=== PATIENT | female | born 1975 | race Hispanic/Latino ===

== ENCOUNTER 2020-07-17 21:27 | Emergency (ER) | payer MEDICARE ==
[2020-07-17 22:02] LABS: BASOPHILS % (AUTO) 0.4 % (0.0-5.0); EOSINOPHILS % (AUTO) 0.1 % (0.0-8.0); HEMATOCRIT 38.8 % (36-48); LYMPHOCYTES % (AUTO) 27.7 % (21.0-51.0); MEAN CORPUSCULAR HEMOGLOBIN 28.3 pg (27.0-33.0); MEAN CORPUSCULAR HGB CONC 32.5 g/dL (32.0-36.0); MONOCYTES % (AUTO) 5.2 % (3.0-13.0); NEUTROPHILS % (AUTO) 66.1 % (40.0-77.0); PLATELET COUNT (AUTO) 326 K/uL (130-400); RED BLOOD CELL COUNT(AUTO) 4.46 MIL/uL (4.00-5.50); RED CELL DISTRIBUTION WIDTH 13.1 % (11.0-15.5); WHITE BLOOD COUNT (AUTO) 7.4 K/uL (4.8-10.8)
[2020-07-17 22:13] LABS: CARBON DIOXIDE 25 mmol/L (21-32); CHLORIDE 105 mmol/L (101-111); CREATININE 0.9 mg/dL (0.5-1.5); GLOMERULAR FILTR. RATE CALC 71 mL/min (>60); GLUCOSE,RANDOM 303 mg/dL (70-105); SODIUM SERUM 139 mmol/L (136-145); UREA NITROGEN, BLOOD 15 mg/dL (7-18)
[2020-07-17 22:16] LABS: INR 0.84 (0.85-1.15); PROTHROMBIN TIME 9.1 SEC (9.6-11.6)
[2020-07-17 22:18] LABS: ALANINE AMINOTRANSFERASE 33 U/L (12-78); ALBUMIN 3.4 g/dL (3.5-5.0); ASPARTATE AMINOTRANSFERASE 16 U/L (10-37); CREATINE KINASE, TOTAL 52 U/L (21-232); TOTAL PROTEIN, SERUM 7.5 g/dL (6.0-8.3)
[2020-07-17 22:21] LABS: BILIRUBIN,TOTAL < 0.1 mg/dL (0.2-1.0)
[2020-07-17 22:28] LABS: B-TYPE NATRIURETIC PEPTIDE 8 pg/mL (0-100)
== END 2020-07-17 23:40 | disposition home or self-care (01) ==
LOC: EDH 21:27
DX: R07.89 Other chest pain (principal); F43.0 Acute stress reaction; E11.9 Type 2 diabetes mellitus without complications; K21.9 Gastro-esophageal reflux disease without esophagitis; Z90.710 Acquired absence of both cervix and uterus
CPT/HCPCS: 36415; 71045; 80053; 82550; 83880; 84484; 85025; 85610; 85730; 93005

== ENCOUNTER 2021-07-07 18:41 | Emergency (ER) | payer OTHER, MEDICARE ==
[~2021-07-07] VITALS: Ht 154.9 cm; Wt 63.0 kg
[2021-07-07 18:53] LABS: BASOPHILS % (AUTO) 0.4 % (0.0-5.0); EOSINOPHILS % (AUTO) 0.3 % (0.0-8.0); HEMATOCRIT 41.8 % (36-48); LYMPHOCYTES % (AUTO) 23.1 % (21.0-51.0); MEAN CORPUSCULAR HEMOGLOBIN 27.6 pg (27.0-33.0); MEAN CORPUSCULAR HGB CONC 32.1 g/dL (32.0-36.0); MONOCYTES % (AUTO) 4.2 % (3.0-13.0); NEUTROPHILS % (AUTO) 71.7 % (40.0-77.0); PLATELET COUNT (AUTO) 314 K/uL (130-400); RED BLOOD CELL COUNT(AUTO) 4.86 MIL/uL (4.00-5.50); RED CELL DISTRIBUTION WIDTH 13.1 % (11.0-15.5); WHITE BLOOD COUNT (AUTO) 7.6 K/uL (4.8-10.8)
[2021-07-07 19:10] LABS: ALBUMIN 3.7 g/dL (3.5-5.0); BILIRUBIN,TOTAL 0.2 mg/dL (0.2-1.0); CREATININE 1.1 mg/dL (0.5-1.5); POTASSIUM 4.3 mmol/L (3.5-5.1); TOTAL PROTEIN, SERUM 8.1 g/dL (6.0-8.3)
[2021-07-07 20:40] VITALS: BP 130/80
[2021-07-07] MEDS ORDERED: INSULIN HUMULIN R 100 UNIT/ML 3ML IV ONE (21:00)
[2021-07-07] MEDS ORDERED: 0.9%NACL 1000ML 1,000 ML IV ONE (21:00)
== END 2021-07-07 23:14 | disposition left against medical advice (07) ==
LOC: EDH 18:41
DX: R07.89 Other chest pain (principal); E11.65 Type 2 diabetes mellitus with hyperglycemia; J45.909 Unspecified asthma, uncomplicated; Z79.4 Long term (current) use of insulin
CPT/HCPCS: 36415; 71045; 80053; 82948; 84484 ×2; 85025; 85378; 93005 ×2; 96361; 96374; 99285; J1815; J7030

== ENCOUNTER 2021-09-22 01:02 | Observation (INO) | payer OTHER, MEDICARE ==
[2021-09-22] VITALS (10 sets, daily range): BP systolic 94–115; BP diastolic 6–69
[~2021-09-22] VITALS: Ht 154.9 cm; Wt 60.9 kg
[2021-09-22] MEDS ORDERED: 0.9%NACL 1000ML 1,000 ML IV ONE ×3 (01:21→03:00)
[2021-09-22 01:33] LABS: BASOPHILS % (AUTO) 0.4 % (0.0-5.0); EOSINOPHILS % (AUTO) 1.2 % (0.0-8.0); HEMATOCRIT 41.8 % (36-48); LYMPHOCYTES % (AUTO) 40.8 % (21.0-51.0); MEAN CORPUSCULAR HEMOGLOBIN 28.2 pg (27.0-33.0); MEAN CORPUSCULAR VOLUME 85.3 fL (79-99); MONOCYTES % (AUTO) 5.8 % (3.0-13.0); NEUTROPHILS % (AUTO) 51.5 % (40.0-77.0); PLATELET COUNT (AUTO) 303 K/uL (130-400); RED CELL DISTRIBUTION WIDTH 12.7 % (11.0-15.5); WHITE BLOOD COUNT (AUTO) 7.3 K/uL (4.8-10.8)
[2021-09-22 01:38] LABS: CREATININE 1.1 mg/dL (0.5-1.5); POTASSIUM 3.5 mmol/L (3.5-5.1)
[2021-09-22 01:48] LABS: ALBUMIN 3.5 g/dL (3.5-5.0); BILIRUBIN,TOTAL 0.2 mg/dL (0.2-1.0); TOTAL PROTEIN, SERUM 7.5 g/dL (6.0-8.3)
[2021-09-22] MEDS ORDERED: DEXTROSE 50%-WATER 50 ML DISP.SYRIN IV ONE ×2 (02:10→02:30)
[2021-09-22 03:21] LABS: APPEARANCE,URINE Clear (CLEAR); BILIRUBIN,URINE Negative (NEGATIVE); COLOR,URINE Yellow (YELLOW); GLUCOSE, URINE (UA) >=1000 mg/dL (NEGATIVE); KETONES,URINE Negative (NEGATIVE); LEUKOCYTE ESTERASE ,URINE Moderate (NEGATIVE); NITRATE,URINE Negative (NEGATIVE); OCCULT BLOOD,URINE Negative (NEGATIVE); PROTEIN,URINE Negative (NEGATIVE); UROBILINOGEN,URINE 0.2 mg/dL (0.2-1.0)
[2021-09-22 03:39] LABS: BACTERIA,URINE Few /HPF (None Seen); MUCUS,URINE Few LPF (None Seen); SQUAMOUS EPITHELIAL CELL,UR Rare /HPF (0-2)
[2021-09-22] MEDS ORDERED: CEFTRIAXONE 1G VIAL IVP ONE (04:30)
[2021-09-22] MEDS ORDERED: ESOM40CA54 PO (04:36)
[2021-09-22] MEDS ORDERED: EMPA25TA PO (04:36)
[2021-09-22] MEDS ORDERED: ZOLP5TAB8 PO (04:36)
[2021-09-22] MEDS ORDERED: LISI5TAB21 PO (04:36)
[2021-09-22] MEDS ORDERED: SEMA7TAB PO (04:36)
[2021-09-22] MEDS ORDERED: METF-446 PO (04:36)
[2021-09-22] MEDS ORDERED: CYCL-309 PO (04:36)
[2021-09-22] MEDS ORDERED: IPRAHFA IH (04:36)
[2021-09-22] MEDS ORDERED: ATOR10 PO (04:36)
[2021-09-22] MEDS ORDERED: DAPA5TAB PO (04:36)
[2021-09-22] MEDS ORDERED: LACTULOSE 20 GM/30 ML UDCUP PO PRN (06:00)
[2021-09-22] MEDS ORDERED: ONDANSETRON 4MG INJ IVP PRN (06:00)
[2021-09-22] MEDS ORDERED: ACETAMINOPHEN 325 MG TAB PO PRN (06:00)
[2021-09-22] MEDS ORDERED: GLUCAGON 1MG KIT 1 MG ML IM PRN (06:30)
[2021-09-22] MEDS ORDERED: DEXTROSE 50%-WATER 50 ML DISP.SYRIN IV PRN (06:30)
[2021-09-22] MEDS: DEXTROSE 5%-LACTATED RINGERS 1,000 ML IV SCH ×2 (06:37→14:30)
[2021-09-22] MEDS: ZOSYN 3.375GM+NS 50ML 50 ML IV SCH ×3 (06:40→21:36)
[2021-09-22 08:58] LABS: INR 0.9 (0.85-1.15); PROTHROMBIN TIME 9.9 SEC (9.6-11.6)
[2021-09-22 09:00] LABS: PARTIAL THROMBOPLASTIN TIME 23.4 SEC (26.3-35.5)
[2021-09-22] MEDS: PANTOPRAZOLE 40 MG/VIAL IVP SCH (09:00)
[2021-09-22] MEDS: ENOXAPARIN SODIUM 40 MG/0.4 ML SYRINGE SQ SCH (09:00)
[2021-09-22] MEDS: MIDODRINE HCL 5 MG TABLET PO SCH ×3 (09:00→19:47)
[2021-09-22 09:07] LABS: ABG BASE EXCESS -4.6 mmol/L (-2.0-3.0); ABG HCO3 19.8 mmol/L (21.0-28.0); ABG OXYGEN SATURATION 97.9 % (95.0-99.0); ABG PCO2 35 mmHg (32-45)
[2021-09-22] MEDS ORDERED: IOHEXOL-350 75 ML VIAL IV ONE ×3 (12:21→15:28)
[2021-09-22] MEDS: HYDROCODONE/ACETAMINOPHEN 5/325 MG TAB PO PRN ×2 (13:08→21:47)
[2021-09-22] MEDS ORDERED: 0.9%NACL 50ML 50 ML IV ONE (19:45)
[2021-09-23 00:46] VITALS: BP 101/42
[2021-09-23 04:19] VITALS: BP 119/55
[2021-09-23 04:51] LABS: HEMATOCRIT 37.4 % (36-48); MEAN CORPUSCULAR HEMOGLOBIN 27.6 pg (27.0-33.0); MEAN CORPUSCULAR HGB CONC 31.8 g/dL (32.0-36.0); MEAN CORPUSCULAR VOLUME 86.8 fL (79-99); RED BLOOD CELL COUNT(AUTO) 4.31 MIL/uL (4.00-5.50); WHITE BLOOD COUNT (AUTO) 6.4 K/uL (4.8-10.8)
[2021-09-23 05:08] LABS: CARBON DIOXIDE 28 mmol/L (21-32); CHLORIDE 103 mmol/L (101-111); CHOLESTEROL 216 mg/dL (<200); CREATININE 0.9 mg/dL (0.5-1.5); GLOMERULAR FILTR. RATE CALC 71 mL/min (>60); GLUCOSE,RANDOM 183 mg/dL (70-105); HDL CHOLESTEROL 67 mg/dL (35-85); LDL DIRECT 99 mg/dL (0-99); POTASSIUM 4.1 mmol/L (3.5-5.1); SODIUM SERUM 137 mmol/L (136-145); TRIGLYCERIDES 238 mg/dL (30-200); UREA NITROGEN, BLOOD 15 mg/dL (7-18)
[2021-09-23 05:11] LABS: CRP QUANTITATIVE < 2.00 mg/L (0.00-9.0)
[2021-09-23 05:49] LABS: HEMOGLOBIN A1C 12.9 % (4.0-6.0)
[2021-09-23] MEDS: ZOSYN 3.375GM+NS 50ML 50 ML IV SCH ×3 (05:49→20:57)
[2021-09-23] MEDS: HYDROCODONE/ACETAMINOPHEN 5/325 MG TAB PO PRN ×3 (05:50→20:46)
[2021-09-23] MEDS: PANTOPRAZOLE 40 MG/VIAL IVP SCH (08:06)
[2021-09-23] MEDS: MIDODRINE HCL 5 MG TABLET PO SCH (08:16)
[2021-09-23] MEDS: ENOXAPARIN SODIUM 40 MG/0.4 ML SYRINGE SQ SCH (08:33)
[2021-09-23 08:38] VITALS: BP 134/74
[2021-09-23 11:43] VITALS: BP 125/75
[2021-09-23] MEDS ORDERED: 0.9%NACL 50ML 50 ML IV ONE (12:37)
[2021-09-23 16:56] VITALS: BP 102/65
[2021-09-23 18:00] VITALS: BP 128/84
[2021-09-23] MEDS ORDERED: IBUPROFEN 600 MG TABLET PO PRN (18:30)
[2021-09-23] MEDS: INSULIN HUMULIN R 100 UNIT/ML 3ML SQ SCH (20:56)
[2021-09-24] VITALS: BP 114/67
[2021-09-24 04:00] VITALS: BP 111/64
[2021-09-24] MEDS: ZOSYN 3.375GM+NS 50ML 50 ML IV SCH (05:05)
[2021-09-24] MEDS: INSULIN HUMULIN R 100 UNIT/ML 3ML SQ SCH (07:28)
[2021-09-24] MEDS ORDERED: PANTOPRAZOLE 40 MG TAB DR PO SCH (07:59)
[2021-09-24 08:00] VITALS: BP 110/71
[2021-09-24] MEDS ORDERED: METFORMIN HCL 500 MG TABLET PO SCH (08:00)
[2021-09-24] MEDS ORDERED: CYCLOBENZAPRINE HCL 10 MG TABLET PO SCH (09:00)
[2021-09-24] MEDS ORDERED: ***HM*** (Empagliflozin (Jardiance) 25 MG) PO SCH (09:00)
[2021-09-24] MEDS ORDERED: DAPAGLIFLOZIN PROPANEDIOL 5 MG PO SCH (09:00)
[2021-09-24] MEDS ORDERED: MIDODRINE HCL 5 MG TABLET PO SCH (09:00)
[2021-09-24] MEDS ORDERED: IPRATROPIUM BROMIDE IH SCH (09:00)
[2021-09-24] MEDS ORDERED: NON-FORMULARY MEDICATION 1 EACH (Metformin HCl 1,000 MG) PO SCH (09:00)
[2021-09-24] MEDS ORDERED: SEMAGLUTIDE 7 MG PO SCH (09:00)
[2021-09-24] MEDS ORDERED: LISINOPRIL 5 MG TABLET PO SCH (09:00)
[2021-09-24] MEDS ORDERED: LEVO500T90 PO (09:04)
[2021-09-24] MEDS ORDERED: ZOLPIDEM TARTRATE 5 MG TAB PO SCH (17:00)
[2021-09-24] MEDS ORDERED: ATORVASTATIN 10 MG TABLET PO SCH (21:00)
== END 2021-09-24 11:10 | disposition home or self-care (01) ==
LOC: EDH 01:02 → INTOOBSV 05:20 → EDHIP 05:20 → 2AH 16:47 → 3DH 09-23 17:53
PROVIDERS: ADMIT Internal Medicine Pulmonary Disease; ATTEND Internal Medicine Pulmonary Disease
DX: A41.9 Sepsis, unspecified organism (principal); R65.21 Severe sepsis with septic shock; N39.0 Urinary tract infection, site not specified; I95.2 Hypotension due to drugs; E11.69 Type 2 diabetes mellitus with other specified complication; E11.649 Type 2 diabetes mellitus with hypoglycemia without coma; M86.9 Osteomyelitis, unspecified; E78.00 Pure hypercholesterolemia, unspecified; Z96.659 Presence of unspecified artificial knee joint; Z79.899 Other long term (current) drug therapy; Z98.890 Other specified postprocedural states; Z79.84 Long term (current) use of oral hypoglycemic drugs
CPT/HCPCS: 36415 ×2; 36600; 71045; 73702; 74176; 80048; 80053; 80061; 81001; 82550; 82803; 82948 ×14; 83036; 83605; 83735; 83874; 84484; 84703; 85025; 85027; 85610; 85651; 85730; 86140; 87088; 96361 ×2; 96365; 96366 ×3; 96372; 96375; 96376; 99285; C9113 ×2; G0378 ×43; J0696; J1650; J2543 ×7; J7030 ×2; J7070; Q9967 ×3

== ENCOUNTER 2022-04-12 16:24 | Emergency (ER) | payer OTHER, MEDICARE ==
[~2022-04-12] VITALS: Ht 154.9 cm; Wt 61.7 kg
[~2022-04-12 16:24] MED LIST: ATOR10 PO; CYCL-309 PO; DAPA5TAB PO; EMPA25TA PO; ESOM40CA54 PO; IPRAHFA IH; LEVO500T90 PO; LISI5TAB21 PO; METF-446 PO; SEMA7TAB2 PO; ZOLP5TAB8 PO
[2022-04-12 17:00] VITALS: BP 160/80
[2022-04-12] MEDS ORDERED: ACETAMINOPHEN 500 MG TABLET PO ONE (18:00)
[2022-04-12 19:39] LABS: BASOPHILS % (AUTO) 0.2 % (0.0-5.0); EOSINOPHILS % (AUTO) 0.5 % (0.0-8.0); HEMATOCRIT 37.4 % (36-48); LYMPHOCYTES % (AUTO) 25.6 % (21.0-51.0); MEAN CORPUSCULAR HEMOGLOBIN 27.5 pg (27.0-33.0); MEAN CORPUSCULAR HGB CONC 32.4 g/dL (32.0-36.0); MONOCYTES % (AUTO) 4.9 % (3.0-13.0); NEUTROPHILS % (AUTO) 68.3 % (40.0-77.0); PLATELET COUNT (AUTO) 384 K/uL (130-400); RED CELL DISTRIBUTION WIDTH 12.8 % (11.0-15.5); WHITE BLOOD COUNT (AUTO) 8.5 K/uL (4.8-10.8)
[2022-04-12] MEDS ORDERED: DICL20GE TP (19:45)
[2022-04-12 19:46] LABS: APPEARANCE,URINE Clear (CLEAR); BILIRUBIN,URINE Negative (NEGATIVE); COLOR,URINE Yellow (YELLOW); GLUCOSE, URINE (UA) >=1000 mg/dL (NEGATIVE); KETONES,URINE Trace mg/dL (NEGATIVE); LEUKOCYTE ESTERASE ,URINE Negative (NEGATIVE); NITRATE,URINE Negative (NEGATIVE); OCCULT BLOOD,URINE Negative (NEGATIVE); PH,URINE 5.5 (5.0-8.0); PROTEIN,URINE POS 1+ mg/dL (NEGATIVE)
[2022-04-12 19:49] LABS: CREATININE 0.8 mg/dL (0.5-1.5); POTASSIUM 4.3 mmol/L (3.5-5.1)
[2022-04-12 19:54] LABS: BACTERIA,URINE Few /HPF (None Seen); RBC,URINE 0-1 /HPF (0-1); WBC,URINE 0-1 /HPF (0-1)
[2022-04-12 19:54] LABS: ALBUMIN 3.3 g/dL (3.5-5.0)
[2022-04-12 19:55] LABS: MUCUS,URINE Few LPF (None Seen); SQUAMOUS EPITHELIAL CELL,UR Moderate /HPF (0-2)
== END 2022-04-12 20:08 | disposition home or self-care (01) ==
LOC: EDH 16:24
DX: M25.561 Pain in right knee (principal); E11.9 Type 2 diabetes mellitus without complications; E78.00 Pure hypercholesterolemia, unspecified; F41.9 Anxiety disorder, unspecified; Z79.84 Long term (current) use of oral hypoglycemic drugs; Z79.899 Other long term (current) drug therapy
CPT/HCPCS: 36415; 73562; 80053; 81001; 85025

== ENCOUNTER 2022-06-10 04:38 | Emergency (ER) | payer OTHER, MEDICARE ==
[~2022-06-10 04:38] MED LIST changes: +DICL20GE TP; +LEVO-70 PO; -LEVO500T90 PO
[2022-06-10 05:30] LABS: BASOPHILS % (AUTO) 0.6 % (0.0-5.0); EOSINOPHILS % (AUTO) 1.3 % (0.0-8.0); HEMATOCRIT 40.3 % (36-48); LYMPHOCYTES % (AUTO) 39.7 % (21.0-51.0); MEAN CORPUSCULAR HEMOGLOBIN 27.3 pg (27.0-33.0); MEAN CORPUSCULAR HGB CONC 32.3 g/dL (32.0-36.0); MEAN CORPUSCULAR VOLUME 84.5 fL (79-99); MONOCYTES % (AUTO) 7.2 % (3.0-13.0); NEUTROPHILS % (AUTO) 50.9 % (40.0-77.0); PLATELET COUNT (AUTO) 325 K/uL (130-400); RED BLOOD CELL COUNT(AUTO) 4.77 MIL/uL (4.00-5.50); RED CELL DISTRIBUTION WIDTH 12.5 % (11.0-15.5); WHITE BLOOD COUNT (AUTO) 7.2 K/uL (4.8-10.8)
[2022-06-10 05:44] LABS: ALBUMIN 3.7 g/dL (3.5-5.0); CREATININE 0.9 mg/dL (0.5-1.5); POTASSIUM 4.9 mmol/L (3.5-5.1); TOTAL PROTEIN, SERUM 7.7 g/dL (6.0-8.3)
[2022-06-10] MEDS ORDERED: INSULIN LISPRO 100 UNIT/ML 3ML SQ ONE ×2 (06:30)
[2022-06-10 06:43] LABS: ERYTHROCYTE SEDIMENTATION RATE 35 MM/HR (0-20)
[2022-06-10] MEDS ORDERED: DICL50TA9 PO (07:43)
[2022-06-10 07:49] VITALS: BP 123/70
[2022-06-10] MEDS ORDERED: HYDROCODONE/ACETAMINOPHEN 10/325 MG TAB PO ONE (08:00)
== END 2022-06-10 08:26 | disposition home or self-care (01) ==
LOC: EDH 04:38
DX: S80.01XA Contusion of right knee, initial encounter (principal); E11.9 Type 2 diabetes mellitus without complications; F41.9 Anxiety disorder, unspecified; E78.00 Pure hypercholesterolemia, unspecified; Z98.890 Other specified postprocedural states; Z79.84 Long term (current) use of oral hypoglycemic drugs; Z79.899 Other long term (current) drug therapy; W19.XXXA Unspecified fall, initial encounter; Y93.89 Activity, other specified; Y92.89 Other specified places as the place of occurrence of the external cause; Y99.8 Other external cause status
CPT/HCPCS: 99285; 93970; 80053; 85025; 85378; 85651; 82948; 36415; 73564; 96372; J1815

== ENCOUNTER 2023-01-20 13:18 | Emergency (ER) | payer OTHER, MEDICARE ==
[~2023-01-20] VITALS: Ht 154.9 cm; Wt 55.8 kg
[~2023-01-20 13:18] MED LIST changes: +DICL50TA9 PO
[2023-01-20 13:58] LABS: BASOPHILS % (AUTO) 0.3 % (0.0-5.0); EOSINOPHILS % (AUTO) 0.5 % (0.0-8.0); HEMATOCRIT 39.2 % (36-48); MEAN CORPUSCULAR HEMOGLOBIN 27.8 pg (27.0-33.0); MEAN CORPUSCULAR HGB CONC 32.4 g/dL (32.0-36.0); MEAN CORPUSCULAR VOLUME 85.8 fL (79-99); MONOCYTES % (AUTO) 4.2 % (3.0-13.0); NEUTROPHILS % (AUTO) 72.7 % (40.0-77.0); PLATELET COUNT (AUTO) 373 K/uL (130-400); RED BLOOD CELL COUNT(AUTO) 4.57 MIL/uL (4.00-5.50); RED CELL DISTRIBUTION WIDTH 12.7 % (11.0-15.5); WHITE BLOOD COUNT (AUTO) 9.4 K/uL (4.8-10.8)
[2023-01-20] MEDS ORDERED: 0.9%NACL 1000ML 1,000 ML IV ONE (14:00)
[2023-01-20 14:06] LABS: CREATININE 1.2 mg/dL (0.5-1.5); POTASSIUM 4.8 mmol/L (3.5-5.1)
[2023-01-20 14:15] LABS: ALBUMIN 4.1 g/dL (3.5-5.0); TOTAL PROTEIN, SERUM 8.3 g/dL (6.0-8.3)
[2023-01-20 15:45] VITALS: BP 105/36
== END 2023-01-20 17:07 | disposition home or self-care (01) ==
LOC: EDH 13:18
DX: R42 Dizziness and giddiness (principal); F32.A Depression, unspecified; E11.9 Type 2 diabetes mellitus without complications; E78.00 Pure hypercholesterolemia, unspecified; Z90.710 Acquired absence of both cervix and uterus; Z79.899 Other long term (current) drug therapy
CPT/HCPCS: 99284; 96360; 70450; 84484; 80053; 85025; 36415; 93005; J7030

== ENCOUNTER 2023-07-26 19:17 | Emergency (ER) | payer OTHER, MEDICARE ==
[2023-07-26 19:51] LABS: APPEARANCE,URINE CLEAR (CLEAR); BILIRUBIN,URINE NEGATIVE (NEGATIVE); COLOR,URINE COLORLESS (YELLOW); GLUCOSE, URINE (UA) >=1000 mg/dL (NEGATIVE); KETONES,URINE NEGATIVE (NEGATIVE); LEUKOCYTE ESTERASE ,URINE NEGATIVE Leu/uL (NEGATIVE); NITRATE,URINE NEGATIVE (NEGATIVE); PH,URINE 5.5 (5.0-8.0); PROTEIN,URINE 20 mg/dL (NEGATIVE); UROBILINOGEN,URINE 0.2 mg/dL (0.2-1.0)
[2023-07-26 19:55] LABS: ADD UA MICROSCOPIC YES
[2023-07-26 19:56] LABS: BACTERIA,URINE RARE /HPF (None Seen); SQUAMOUS EPITHELIAL CELL,UR RARE /HPF (0-2)
[2023-07-26] MEDS ORDERED: INSULIN LISPRO 100 UNIT/ML 3ML SQ ONE (20:00)
[2023-07-26] MEDS ORDERED: INSU200I SQ (20:30)
[2023-07-26 20:40] LABS: BASOPHILS # (AUTO) 0.03 K/uL (0.00-0.20); BASOPHILS % (AUTO) 0.3 % (0.0-5.0); EOSINOPHILS # (AUTO) 0.02 K/uL (0.00-0.70); EOSINOPHILS % (AUTO) 0.2 % (0.0-8.0); HEMATOCRIT 36.5 % (36-48); IMMATURE GRANULOCYTE ABSOLUTE 0.03 K/uL (0-1); LYMPHOCYTES # (AUTO) 2.6 K/uL (1.0-4.8); LYMPHOCYTES % (AUTO) 26.4 % (21.0-51.0); MEAN CORPUSCULAR HEMOGLOBIN 27.6 pg (27.0-33.0); MEAN CORPUSCULAR HGB CONC 32.1 g/dL (32.0-36.0); MEAN CORPUSCULAR VOLUME 86.1 fL (79-99); MONOCYTES # (AUTO) 0.5 K/uL (0.1-1.0); MONOCYTES % (AUTO) 5.2 % (3.0-13.0); NEUTROPHILS # (AUTO) 6.7 K/uL (1.8-7.7); NEUTROPHILS % (AUTO) 67.6 % (40.0-77.0); PLATELET COUNT (AUTO) 386 K/uL (130-400); RED BLOOD CELL COUNT(AUTO) 4.24 MIL/uL (4.00-5.50); RED CELL DISTRIBUTION WIDTH 13.2 % (11.0-15.5); WHITE BLOOD COUNT (AUTO) 9.8 K/uL (4.8-10.8)
[2023-07-26 20:54] LABS: CREATININE 1.1 mg/dL (0.5-1.5); POTASSIUM 4.2 mmol/L (3.5-5.1)
[2023-07-26 20:59] LABS: BILIRUBIN,TOTAL 0.2 mg/dL (0.2-1.0); TOTAL PROTEIN, SERUM 8.3 g/dL (6.0-8.3)
[2023-07-26 21:10] VITALS: BP 124/72; PULSE 88; RESP 20; O2SAT 99
== END 2023-07-26 21:15 | disposition home or self-care (01) ==
LOC: EDH 19:17
DX: E11.65 Type 2 diabetes mellitus with hyperglycemia (principal); T38.0X5A Adverse effect of glucocorticoids and synthetic analogues, initial encounter; E78.00 Pure hypercholesterolemia, unspecified; Z79.4 Long term (current) use of insulin; Z79.84 Long term (current) use of oral hypoglycemic drugs; Z79.899 Other long term (current) drug therapy; Z90.49 Acquired absence of other specified parts of digestive tract; Y92.89 Other specified places as the place of occurrence of the external cause
CPT/HCPCS: 36415; 80053; 81001; 82948; 85025

== ENCOUNTER 2024-01-28 13:54 | Emergency (ER) | payer OTHER, MEDICARE ==
[~2024-01-28] VITALS: Ht 154.9 cm; Wt 63.5 kg
[~2024-01-28 13:54] MED LIST changes: +INSU200I SQ
[2024-01-28] MEDS: ONDANSETRON 4MG INJ IVP ONE (14:43)
[2024-01-28] MEDS: MORPHINE 2 MG SYG IVP ONE (14:44)
[2024-01-28 15:11] LABS: MEAN CORPUSCULAR HEMOGLOBIN 27.1 pg (27.0-33.0); MEAN CORPUSCULAR HGB CONC 32.1 g/dL (32.0-36.0); MEAN CORPUSCULAR VOLUME 84.3 fL (79-99); PLATELET COUNT (AUTO) 298 K/uL (130-400); RED BLOOD CELL COUNT(AUTO) 4.51 MIL/uL (4.00-5.50); RED CELL DISTRIBUTION WIDTH 13.7 % (11.0-15.5); WHITE BLOOD COUNT (AUTO) 6.5 K/uL (4.8-10.8)
[2024-01-28] MEDS ORDERED: IOHEXOL 350 MG/ML 100ML INFUS..BTL IV ONE (15:16)
[2024-01-28 15:26] LABS: POTASSIUM 4.3 mmol/L (3.5-5.1)
[2024-01-28 16:08] LABS: BAND NEUTROPHILS % (MANUAL) 1 % (0-2); BASOPHILS % (MANUAL) 1 % (0-2); LYMPHOCYTES % (MANUAL) 24 % (22-44); MONOCYTES % (MANUAL) 5 % (2-9); SEGMENTED NEUTROPHILS % 69 % (40-70); TOTAL CELLS COUNTED 100
[2024-01-28 16:09] LABS: MAN.DIFF COMMENT-IMPRESSION MANUAL DIFFERENTIAL; PLATELET MORPHOLOGY COMMENT ADEQUATE; WBC MORPHOLOGY NORMAL
[2024-01-28] MEDS ORDERED: KETO10TA2 PO (17:41)
[2024-01-28] MEDS ORDERED: BACL5TAB PO (17:41)
[2024-01-28 18:02] VITALS: BP 141/51; PULSE 91; RESP 16; O2SAT 98
== END 2024-01-28 18:04 | disposition home or self-care (01) ==
LOC: EDH 13:54
DX: S60.412A Abrasion of right middle finger, initial encounter (principal); R07.89 Other chest pain; E11.9 Type 2 diabetes mellitus without complications; E78.00 Pure hypercholesterolemia, unspecified; Z79.84 Long term (current) use of oral hypoglycemic drugs; Z79.899 Other long term (current) drug therapy; Z90.49 Acquired absence of other specified parts of digestive tract; Z90.710 Acquired absence of both cervix and uterus; Z98.890 Other specified postprocedural states; V43.52XA Car driver injured in collision with other type car in traffic accident, initial encounter; Y93.I9 Activity, other involving external motion; Y92.488 Other paved roadways as the place of occurrence of the external cause; Y99.8 Other external cause status
CPT/HCPCS: 99285; 70450; 96374; 96375; 80048; 83880; 85025; 36415; 73130; 72125; 71260; 74177; J2270; J2405; Q9967

== ENCOUNTER 2024-05-09 12:54 | Observation (INO) | payer MEDICARE ==
[~2024-05-09] VITALS: Ht 154.9 cm; Wt 61.0 kg
[~2024-05-09 12:54] MED LIST changes: +BACL5TAB PO; -ESOM40CA54 PO; +ESOM40CA66 PO; +KETO10TA2 PO
[2024-05-09 13:37] LABS: BASOPHILS # (AUTO) 0.03 K/uL (0.00-0.20); BASOPHILS % (AUTO) 0.2 % (0.0-5.0); EOSINOPHILS # (AUTO) 0.07 K/uL (0.00-0.70); EOSINOPHILS % (AUTO) 0.6 % (0.0-8.0); HEMATOCRIT 38.5 % (36-48); IMMATURE GRANULOCYTE ABSOLUTE 0.05 K/uL (0-1); LYMPHOCYTES % (AUTO) 15.6 % (21.0-51.0); MEAN CORPUSCULAR HEMOGLOBIN 25.2 pg (27.0-33.0); MEAN CORPUSCULAR HGB CONC 30.6 g/dL (32.0-36.0); MEAN CORPUSCULAR VOLUME 82.1 fL (79-99); MONOCYTES # (AUTO) 0.6 K/uL (0.1-1.0); MONOCYTES % (AUTO) 4.4 % (3.0-13.0); NEUTROPHILS # (AUTO) 9.9 K/uL (1.8-7.7); NEUTROPHILS % (AUTO) 78.8 % (40.0-77.0); PLATELET COUNT (AUTO) 348 K/uL (130-400); RED BLOOD CELL COUNT(AUTO) 4.69 MIL/uL (4.00-5.50); RED CELL DISTRIBUTION WIDTH 13.7 % (11.0-15.5); WHITE BLOOD COUNT (AUTO) 12.6 K/uL (4.8-10.8)
[2024-05-09 13:45] LABS: CREATININE 1.1 mg/dL (0.5-1.0); POTASSIUM 4.7 mmol/L (3.5-5.1)
[2024-05-09 14:20] LABS: B-TYPE NATRIURETIC PEPTIDE 28 pg/mL (0-100)
[2024-05-09] MEDS: ONDANSETRON 4MG INJ IVP ONE (14:25)
[2024-05-09] MEDS: ASPIRIN 325MG TAB PO ONE (14:26)
[2024-05-09 16:25] LABS: AMPHET/METH SCREEN,URINE NEGATIVE (NEGATIVE); BARBITURATE SCREEN, URINE NEGATIVE (NEGATIVE); BENZODIAZEPINES SCREEN,URINE NEGATIVE (NEGATIVE); CANNABINOID SCREEN,URINE NEGATIVE (NEGATIVE); COCAINE SCREEN,URINE NEGATIVE (NEGATIVE); OPIATE SCREEN,URINE POSITIVE (NEGATIVE); PHENCYCLIDINE SCREEN,URINE NEGATIVE (NEGATIVE)
[2024-05-09 18:09] LABS: ADD UA MICROSCOPIC YES; APPEARANCE,URINE CLEAR (CLEAR); BILIRUBIN,URINE NEGATIVE (NEGATIVE); COLOR,URINE LIGHT-YELLOW (YELLOW); GLUCOSE, URINE (UA) >=1000 mg/dL (NEGATIVE); KETONES,URINE 20 mg/dL (NEGATIVE); LEUKOCYTE ESTERASE ,URINE 250 Leu/uL (NEGATIVE); NITRATE,URINE 1+ (NEGATIVE); OCCULT BLOOD,URINE NEGATIVE (NEGATIVE); PROTEIN,URINE 20 mg/dL (NEGATIVE); UROBILINOGEN,URINE 0.2 mg/dL (0.2-1.0)
[2024-05-09 18:15] LABS: BACTERIA,URINE FEW /HPF (None Seen); MUCUS,URINE RARE LPF (None Seen); SQUAMOUS EPITHELIAL CELL,UR RARE /HPF (0-2); WBC,URINE 26-50 /HPF (0-1)
[2024-05-09] MEDS: cefTRIAXone 1G VIAL IVPB ONE (19:25)
[2024-05-09] MEDS: ENOXAPARIN SODIUM 60 MG/0.6 ML SQ SCH (21:57)
[2024-05-09] MEDS ORDERED: HYDR-4068 PO (22:16)
[2024-05-09] MEDS ORDERED: LOSA25TA41 PO (22:18)
[2024-05-09] MEDS ORDERED: DULO30CA52 PO (22:27)
[2024-05-09] MEDS ORDERED: MECL-302 PO (22:27)
[2024-05-09] MEDS ORDERED: ONDA-104 PO (22:27)
[2024-05-09] MEDS ORDERED: ATOR40TA71 PO (22:27)
[2024-05-09] MEDS ORDERED: PIOG45TA64 PO (22:43)
[2024-05-09] MEDS ORDERED: CLOP75TA32 PO (22:43)
[2024-05-09] MEDS ORDERED: PANT40GR PO (22:43)
[2024-05-10] MEDS: DEXTROSE 5 %-0.45 % NACL 1,000 ML IV SCH (01:18)
[2024-05-10 07:00] VITALS: BP 147/64; PULSE 98; RESP 29
[2024-05-10 07:15] VITALS: O2SAT 97
[2024-05-10 07:21] LABS: BASOPHILS # (AUTO) 0.03 K/uL (0.00-0.20); BASOPHILS % (AUTO) 0.2 % (0.0-5.0); EOSINOPHILS # (AUTO) 0.01 K/uL (0.00-0.70); EOSINOPHILS % (AUTO) 0.1 % (0.0-8.0); HEMATOCRIT 33.3 % (36-48); IMMATURE GRANULOCYTE ABSOLUTE 0.07 K/uL (0-1); LYMPHOCYTES # (AUTO) 1.8 K/uL (1.0-4.8); LYMPHOCYTES % (AUTO) 13.3 % (21.0-51.0); MEAN CORPUSCULAR HEMOGLOBIN 25.5 pg (27.0-33.0); MEAN CORPUSCULAR HGB CONC 30.9 g/dL (32.0-36.0); MEAN CORPUSCULAR VOLUME 82.4 fL (79-99); MONOCYTES # (AUTO) 0.9 K/uL (0.1-1.0); MONOCYTES % (AUTO) 6.5 % (3.0-13.0); NEUTROPHILS # (AUTO) 10.7 K/uL (1.8-7.7); NEUTROPHILS % (AUTO) 79.4 % (40.0-77.0); PLATELET COUNT (AUTO) 345 K/uL (130-400); RED BLOOD CELL COUNT(AUTO) 4.04 MIL/uL (4.00-5.50); RED CELL DISTRIBUTION WIDTH 13.6 % (11.0-15.5); WHITE BLOOD COUNT (AUTO) 13.5 K/uL (4.8-10.8)
[2024-05-10 07:31] LABS: CREATININE 1.1 mg/dL (0.5-1.0); POTASSIUM 4.5 mmol/L (3.5-5.1)
[2024-05-10] MEDS: REGADENOSON 0.4 MG/5 ML PF SYG IVP SCH (08:42)
[2024-05-10] MEDS: CLOPIDOGREL 75MG TAB PO SCH (09:29)
[2024-05-10] MEDS: ASPIRIN 81MG CHEW TAB PO SCH (09:29)
[2024-05-10] MEDS: HYDROcodone/acetaMINOPHEN 10/325 MG TAB PO PRN (09:29)
[2024-05-10] MEDS ORDERED: CLOPIDOGREL 75MG TAB PO SCH (09:30)
[2024-05-10] MEDS: INSULIN humuLIN R 100 UNIT/ML 3ML SQ SCH (09:30)
[2024-05-10] MEDS ORDERED: PIOGLITAZONE 45MG TAB PO SCH (09:30)
[2024-05-10] MEDS: PIOGLITAZONE 45MG TAB PO SCH (11:19)
[2024-05-10 12:00] VITALS: BP 126/66; PULSE 87; RESP 13
[2024-05-10 16:00] VITALS: BP 123/67; PULSE 79; RESP 16
[2024-05-10] MEDS: ZOLPidem TARTrate 5 MG TAB PO SCH (16:59)
[2024-05-10] MEDS ORDERED: CYCLOBENZAPRINE HCL 10 MG TABLET PO PRN (21:00)
[2024-05-10] MEDS ORDERED: ATORVASTATIN 40 MG TABLET PO SCH (21:00)
[2024-05-11] MEDS ORDERED: duloXETine HCL 30 MG CAP PO SCH (09:00)
[2024-05-11] MEDS ORDERED: NON-FORMULARY MEDICATION 1 EACH (Esomeprazole Magnesium 40 MG) PO SCH (09:00)
[2024-05-11] MEDS ORDERED: LoSARTan 25 MG TABLET PO SCH (09:00)
[2024-05-11] MEDS ORDERED: PANTOPRAZOLE 40 MG TAB DR PO SCH (09:00)
== END 2024-05-10 18:00 | disposition home or self-care (01) ==
LOC: EDH 12:54 → INTOOBSV 19:59 → EDHIP 19:59 → 2CH 05-10 06:37
PROVIDERS: ADMIT Internal Medicine; ATTEND Internal Medicine
DX: E11.65 Type 2 diabetes mellitus with hyperglycemia (principal); N39.0 Urinary tract infection, site not specified; I25.110 Atherosclerotic heart disease of native coronary artery with unstable angina pectoris; F11.20 Opioid dependence, uncomplicated; S80.01XA Contusion of right knee, initial encounter; I10 Essential (primary) hypertension; F41.9 Anxiety disorder, unspecified; F32.A Depression, unspecified; G47.9 Sleep disorder, unspecified; L98.9 Disorder of the skin and subcutaneous tissue, unspecified; R10.12 Left upper quadrant pain; E78.00 Pure hypercholesterolemia, unspecified; R41.3 Other amnesia; G89.29 Other chronic pain; Z91.199 Patient's noncompliance with other medical treatment and regimen due to unspecified reason; Z79.84 Long term (current) use of oral hypoglycemic drugs; Z90.710 Acquired absence of both cervix and uterus; Z79.4 Long term (current) use of insulin; X58.XXXA Exposure to other specified factors, initial encounter; Y93.89 Activity, other specified; Y92.89 Other specified places as the place of occurrence of the external cause; Y99.8 Other external cause status
CPT/HCPCS: 96372 ×2; 81001; 96365; 96366 ×2; 96375; 99285; 82550 ×4; 84484 ×5; 80048 ×2; 83880; 80305; 83690; 85025 ×2; 87086 ×2; 87186; 82948 ×4; 36415 ×2; 71045; 93005 ×2; 96361; 93017; 78452; J0696; J2405; J1650 ×2; J1815 ×3; G0378 ×6; J7042; J2785; A9500 ×2; 96374

== ENCOUNTER → 2024-10-18 | Outpatient (CLI) | payer OTHER, MEDICARE ==
[~2024-10-18] MED LIST changes: -ATOR10 PO; +ATOR40TA71 PO; -BACL5TAB PO; +CLOP75TA32 PO; -DAPA5TAB PO; -DICL20GE TP; +DULO30CA52 PO; -EMPA25TA PO; -ESOM40CA66 PO; +HYDR-4068 PO; -IPRAHFA IH; -KETO10TA2 PO; -LEVO-70 PO; -LISI5TAB21 PO; +LOSA25TA41 PO; -METF-446 PO; +ONDA-104 PO; +PANT40GR PO; +PIOG45TA64 PO; -SEMA7TAB2 PO
[2024-10-18 13:11] LABS: ALBUMIN 3.4 g/dL (3.5-5.0); BILIRUBIN,TOTAL 0.1 mg/dL (0.2-1.0); TOTAL PROTEIN, SERUM 7.4 g/dL (6.0-8.3)
== END | disposition home or self-care (01) ==
LOC: LAB 10-02 15:38
PROVIDERS: ATTEND Internal Medicine Cardiovascular Disease
DX: I20.9 Angina pectoris, unspecified (principal)
CPT/HCPCS: 36415; 80053

== ENCOUNTER 2025-01-15 20:04 | Emergency (ER) | payer OTHER, MEDICARE ==
[~2025-01-15] VITALS: Ht 154.9 cm; Wt 59.9 kg
--- NOTE | 2025-01-15 20:27 | ERN ---
ED Note History of Present Illness Stated Complaint: LEFT ARM NUMBNESS AND TINGLY Chief Complaint: Numbness Time Seen by MD: 20:18 Dictation: This is a 49-year-old female who underwent coronary artery bypass surgery 2 months ago comes in with 2 week history of left arm numbness and tingling. No history of any headache blurred vision facial asymmetry motor weakness or seizure activity. No history of any head injury Temperature 98.1 pulse 92 respirations 20 blood pressure 134/48 with a pulse oximetry of 98% on room air Her chronic medical problems include diabetes mellitus type 2, hypercholesterolemia, hypertension, depression and anxiety Allergies: Coded Allergies: No Known Drug Allergies (Verified Allergy, 08/16/12) Home Meds Active Scripts Gabapentin (Gabapentin) 100 Mg Capsule, 1 CAP PO TID for 30 Days, #90 CAP 0 Refills Prov:ABDULLAHI PEDRO MD 01/15/25 Insulin Lispro (Humalog Kwikpen) 200 Unit/Ml (3 Ml) Insuln.pen, 6 UNIT SQ TIDP for blood sugar >250, #5 SYRINGE Prov:VANNESA MORALES MD 07/26/23 Diclofenac Sodium (Diclofenac Sodium) 50 Mg Tablet.dr, 50 MG PO TIDP PRN for SEVERE PAIN (7-10), #15 TAB 0 Refills Prov:ANA PATRICIO MD 06/10/22 Reported Medications Pantoprazole Sodium (Pantoprazole Sodium) 40 Mg Granpkt.dr, 40 MG PO AM, PACK 05/09/24 Pioglitazone HCl (Pioglitazone HCl) 45 Mg Tablet, 45 MG PO AD, TAB 05/09/24 Clopidogrel Bisulfate (Clopidogrel) 75 Mg Tablet, 75 MG PO AD, TAB 05/09/24 Atorvastatin Calcium (Atorvastatin Calcium) 40 Mg Tablet, 40 MG PO AD, TAB 05/09/24 Ondansetron HCl (Ondansetron HCl) 4 Mg Tablet, 4 MG PO AD, TAB 05/09/24 Duloxetine HCl (Duloxetine HCl) 30 Mg Capsule.dr, 30 MG PO AM, CAP 05/09/24 Losartan Potassium (Losartan Potassium) 25 Mg Tablet, 25 MG PO AM, TAB 05/09/24 Hydrocodone/Acetaminophen (Hydrocodon-Acetaminophn 10-325) 10 Mg-325 Mg Tablet, 1 EACH PO BID, TAB 05/09/24 Zolpidem Tartrate (Zolpidem Tartrate) 5 Mg Tablet, 10 MG PO DAILYDINNER, TAB 09/22/21 Cyclobenzaprine HCl (Cyclobenzaprine HCl) 10 Mg Tablet, 10 MG PO BID, TAB 09/22/21 Past Medical History Past Medical History: Anxiety, Depression, Diabetes-Type II, High Cholesterol, Hypertension Additional Past Medical Hx: OSTEOMYELOTIS Surgical History: Hysterectomy, CABG, Surgical History Other: RIGHT LEG Family History: CAD Social History: Negative, Lives with family History: Not Applicable RN Note Reviewed/Agreed w/PFSH: Yes Review of System Dictation Constitutional: Negative for fever,chills, and weight loss Eyes: Negative for injury, pain,redness, and discharge ENT: Negative for injury,pain or swelling Cardiovascular: Negative for chest pain, palpitations, and edema Respiratory: Negative for shortness of breath, cough, and wheezing, Abdomen/GI: Negative for abdominal pain, nausea, vomiting, diarrhea, and constipation Back: Negative for injury and pain : Negative for injury, bleeding and discharge MS/Extremity: Negative for injury and deformity Skin: Negative for rash, and discoloration Neuro: Negative for headache, weakness, positive for numbness, tingling, denied seizure Psych: Negative for suicide ideation, homicidal ideation, and hallucinations Initial Vital Sign VS Vital Signs Date Time Temp Pulse Resp B/P (MAP) Pulse Ox O2 Delivery O2 Flow Rate FiO2 01/15/25 20:08 98.1 92 20 134/48 99 Room Air 0 01/15/25 20:30 21 Physical Exam Dictation General: awake, alert, NAD Head/Face: Normocephalic, atraumatic Eyes: PERRL, EOMI, vision at baseline ENT: oral cavity clear, TMs clear, no signs of infection Neck: Trachea midline, supple, no nuchal rigidity Cardiovascular: RRR, normal S1/S2, No MRGs, no JVD Respiratory: CTAB, no respiratory distress, No rales or wheezes Abdomen: Soft, non-tender, non-distended, normal bowel sounds, no guarding or rebound. Skin: Warm, dry, normal turgor, no rash MS/Extremity: Pulses equal, no cyanosis, neurovascular intact, FROM Neuro: COAx4, GCS 15, strength 5/5, CN 2-12 intact, normal cerebellar exam, normal gait, Psych: Normal behavior, mood, and affect normal Extremities-trace edema without any palpable cords, Homans sign is negative Results (Laboratory/Radiology) Laboratory/Radiology Laboratory Tests Test 01/15/25 20:45 01/15/25 21:18 White Blood Count 8.3 K/uL (4.8-10.8) Red Blood Count 3.71 MIL/uL (4.00-5.50) L Hemoglobin 10.1 g/dL (12.0-16.0) L Hematocrit 32.3 % (36-48) L Mean Corpuscular Volume 87.1 fL (79-99) Mean Corpuscular Hemoglobin 27.2 pg (27.0-33.0) Mean Corpuscular Hemoglobin Concent 31.3 g/dL (32.0-36.0) L Red Cell Distribution Width 14.9 % (11.0-15.5) Platelet Count 293 K/uL (130-400) Mean Platelet Volume 11.1 fL (7.5-10.5) H Immature Granulocyte % (Auto) 0.4 % (0-1) Neutrophils (%) (Auto) 64.3 % (40.0-77.0) Lymphocytes (%) (Auto) 26.2 % (21.0-51.0) Monocytes (%) (Auto) 8.2 % (3.0-13.0) Eosinophils (%) (Auto) 0.4 % (0.0-8.0) Basophils (%) (Auto) 0.5 % (0.0-5.0) Neutrophils # (Auto) 5.3 K/uL (1.8-7.7) Lymphocytes # (Auto) 2.2 K/uL (1.0-4.8) Monocytes # (Auto) 0.7 K/uL (0.1-1.0) Eosinophils # (Auto) 0.03 K/uL (0.00-0.70) Basophils # (Auto) 0.04 K/uL (0.00-0.20) Absolute Immature Granulocyte (auto 0.03 K/uL (0-1) Nucleated Red Blood Cells 0.0 % (0.0-0.19) Sodium Level 139 mmol/L (136-145) Potassium Level 4.5 mmol/L (3.5-5.1) Chloride Level 104 mmol/L (101-111) Carbon Dioxide Level 31 mmol/L (21-32) Blood Urea Nitrogen 15 mg/dL (7-18) Creatinine 1.2 mg/dL (0.5-1.0) H Glomerular Filtration Rate Calc 55 mL/min (>90) Random Glucose 204 mg/dL (70-105) H Total Calcium 9.4 mg/dL (8.5-10.1) Magnesium Level 1.70 mg/dL (1.80-2.40) L Total Creatine Kinase 107 U/L (21-232) # Troponin I High Sensitivity 28.5 ng/L (4-50) B-Type Natriuretic Peptide 77 pg/mL (0-100) Urine Color LIGHT-YELLOW (YELLOW) Urine Appearance CLOUDY (CLEAR) H Urine pH 5.5 (5.0-8.0) Urine Specific [place] 1.012 (1.001-1.031) Urine Protein 10 mg/dL (NEGATIVE) H Urine Glucose (UA) NEGATIVE mg/dL (NEGATIVE) Urine Ketones NEGATIVE mg/dL (NEGATIVE) Urine Occult Blood NEGATIVE (NEGATIVE) Urine Nitrate NEGATIVE (NEGATIVE) Urine Bilirubin NEGATIVE mg/dL (NEGATIVE) Urine Urobilinogen 0.2 mg/dL (0.2-1.0) Urine Leukocyte Esterase 250 Mandy/uL (NEGATIVE) H Urine RBC 2-5 /HPF (0-1) H Urine WBC 51-100 /HPF (0-1) H Urine Squamous Epithelial Cells MANY /HPF (0-2) Urine Bacteria MOD /HPF (None Seen) Urine Hyaline Casts 6-10 /LPF (0-1 /LPF) H Labs Reviewed?: Yes EKG Comment: Twelve lead EKG done on 01/15/2025 at 8:37 p.m. showed a heart rate of 83 [place] interval 126, QRS duration 79, QT/QTC 346/407 Impression normal sinus rhythm with no acute STT wave changes although in V1 and V2 there is mild ST coving noted. EKG-rhythm strip-normal sinus rhythm with no acute STT wave changes noted. Interpreted by RENO Pruitt MD ED Course ED Course Orders Procedure Category Date Status Time Cardiac Panel LAB 01/15/25 Complete 20:23 Cbc With Differential LAB 01/15/25 Complete 20:23 Basic Metabolic Panel LAB 01/15/25 Complete 20:23 B-Type Natriuretic LAB 01/15/25 Complete Peptide 20:23 Magnesium LAB 01/15/25 Complete 20:23 12 Lead Ekg Tracing- EKG 01/15/25 Complete Technical 20:23 Chest 1vw RAD 01/15/25 Resulted 20:23 Shoulder Comp 2+Vws Lt RAD 01/15/25 Resulted 20:51 Urinalysis Profile LAB 01/15/25 Complete 21:17 Ketorolac PHA 01/15/25 Complete Tromethamine 15mg/Ml 22:00 Gabapentin 100 Mg Cap PHA 01/15/25 Complete (Neurontin 100 Mg 22:00 Culture Urine EVETTE 01/15/25 Complete 21:38 Current Medications Medications (Trade) Dose Ordered Sig/Ralph Route PRN Reason Start Time Stop Time Status Last Admin Dose Admin Gabapentin (NEURontin 100 mg CAP) 200 mg ONCE ONCE PO 01/15/25 22:00 01/15/25 22:01 DC 01/15/25 21:48 Ketorolac Tromethamine (toRADol) 15 mg ONCE ONCE IV 01/15/25 22:00 01/15/25 22:01 DC 01/15/25 21:49 Vital Signs Date Time Temp Pulse Resp B/P (MAP) Pulse Ox O2 Delivery O2 Flow Rate FiO2 01/15/25 23:14 98.6 87 18 110/52 98 Room Air* 0 21 01/15/25 20:30 86 18 127/66 100 Room Air* 0 21 01/15/25 20:08 98.1 92 20 134/48 99 Room Air 0 We will perform diagnostic labs, advanced imaging and administer medications according to the patient's complaint. Once the results are available, will review and personally interpreted the labs to rule out any acute life-threateni ng emergency the trach require immediate intervention and treatment. I will then re-evaluate the patient after treatment and diagnostic exams have return to determine whether the patient requires any further testing, can safely be discharged home or need further admission to hospital for additional treatment and evaluation. Labs reviewed BNP 7 shows bicarb of 31 BUN and creatinine are 15 and 1.2 with a glucose of 204 troponins are unremarkable brain natriuretic peptide is 77. Chest x-ray is unremarkable for any acute infiltrate. Left shoulder x-rays-no dislocation fracture grossly normal. 11:07 p.m.-patient responded to Toradol and gabapentin Medical Decision Making MDM MDM: Differential diagnosis: Radiculopathy, musculoskeletal pain, osteoarthritis, cervical radiculopathy Rationale: Tests considered and ordered secondary to shared decision making include: Previous outside records reviewed: Old ER visits. Risk of complication and/or morbidity or mortality of patient management: None Medications-Per medication reconciliation Need for hospitalization: Patient does not meet criteria for hospitalization. Need for emergency major/minor surgery: No There are no social concerns with this patient. Prescription drug management Prescriptions will include symptomatic care Patient's prior external medical records from other ER visits were reviewed by me as indicated. Prior testing and results from previous visits were reviewed. Prior tests were taken into account with medical decision making and resource utilization, independent historian/historians were used to obtain complete medical history. I independently interpreted the test that were performed, results were reviewed by me and considered findings on radiology if ordered. Medical management and examination interpretation discussions were had by me with other qualified healthcare professionals as indicated for the patient's care. Problem List Problem List: (1) Radicular pain in left arm (2) Left shoulder pain (3) Arm numbness left Stroke Patient?: No NIH STROKE SCALE: NIH STROKE SCALE Response (Comments) Value Level of Consciousness Alert 0 Ask patient month and their age Answers both correct 0 Command to open eyes, make fist and let go Obeys both correct 0 Best gaze (horizontal eye movement) Normal 0 Visual Field Testing No Visual Field Loss 0 Facial Paresis Normal / Symmetrical 0 Motor Function - Left Arm Normal 0 Motor Function - Right Arm Normal 0 Motor Function - Left Leg Normal 0 Motor Function - Right Leg Normal 0 Limb Ataxia No Ataxia 0 Sensory-pin prick to arms, legs, trunk and face Normal 0 Best Language (describe picture, name items and read) No Aphasia 0 Dysarthria (read several words) Normal Articulation 0 Extinction and Inattention Normal 0 Total 0 DX & DISP Disposition: Discharge Departure Impression: Primary Impression: Left shoulder pain Additional Impressions: Arm numbness left, Radicular pain in left arm Condition: Stable Scripts Gabapentin (Gabapentin) 100 Mg Capsule 1 CAP PO TID for 30 Days, #90 CAP 0 Refills Prov: ABDULLAHI PEDRO MD 01/15/25 Additional Instructions: Patient and the caregiver have been informed of all the diagnostic tests and the imaging conducted during the today's visit to the emergency room and has verbalized understanding of the results I have personally reviewed and interpreted all diagnostic exams performed here in the ER today as well as the vital signs documented by the nursing staff. The patient is now being discharged to home and should follow up with the primary care physician or the specialist as directed by the ER staff. Follow-up with primary care provider in 1 to 2 days. Take medications as directed here in the emergency room. Okay to continue home medications unless otherwise discussed during your visit in the emergency room today. Return to your nearest emergency room if symptoms worsen or if there is no improvement. Call 911 if you need immediate assistance. Take Tylenol or Motrin over-the- counter as needed and if no contraindications are present. Increase oral hydration. A wound culture or urine culture was ordered here in the emergency room department please follow-up with primary care provider and advise them to get repeat ports from our facility. If you had any [place] wrap/splints that were applied here, please do not remove them until you see your primary care or specialty. Referrals: HONORIO LIEBERMAN MD (PCP) ABDULLAHI PEDRO MD Jan 15, 2025 20:27
[2025-01-15 20:54] LABS: BASOPHILS # (AUTO) 0.04 K/uL (0.00-0.20); BASOPHILS % (AUTO) 0.5 % (0.0-5.0); EOSINOPHILS # (AUTO) 0.03 K/uL (0.00-0.70); EOSINOPHILS % (AUTO) 0.4 % (0.0-8.0); HEMATOCRIT 32.3 % (36-48); IMMATURE GRANULOCYTE ABSOLUTE 0.03 K/uL (0-1); LYMPHOCYTES # (AUTO) 2.2 K/uL (1.0-4.8); LYMPHOCYTES % (AUTO) 26.2 % (21.0-51.0); MEAN CORPUSCULAR HEMOGLOBIN 27.2 pg (27.0-33.0); MEAN CORPUSCULAR HGB CONC 31.3 g/dL (32.0-36.0); MEAN CORPUSCULAR VOLUME 87.1 fL (79-99); MONOCYTES # (AUTO) 0.7 K/uL (0.1-1.0); MONOCYTES % (AUTO) 8.2 % (3.0-13.0); NEUTROPHILS # (AUTO) 5.3 K/uL (1.8-7.7); NEUTROPHILS % (AUTO) 64.3 % (40.0-77.0); PLATELET COUNT (AUTO) 293 K/uL (130-400); RED BLOOD CELL COUNT(AUTO) 3.71 MIL/uL (4.00-5.50); RED CELL DISTRIBUTION WIDTH 14.9 % (11.0-15.5); WHITE BLOOD COUNT (AUTO) 8.3 K/uL (4.8-10.8)
[2025-01-15 21:01] LABS: CREATININE 1.2 mg/dL (0.5-1.0); POTASSIUM 4.5 mmol/L (3.5-5.1)
[2025-01-15 21:09] LABS: MAGNESIUM 1.7 mg/dL (1.80-2.40)
[2025-01-15 21:17] LABS: B-TYPE NATRIURETIC PEPTIDE 77 pg/mL (0-100)
--- NOTE | 2025-01-15 21:29 | HMCIMG ---
Exam Type: CHEST 1VW Clinical Information: Recent CABG- left arm numbness Comparison: None Findings: There is cardiomegaly and there is status post median sternotomy. The lungs are clear of infiltrates. Impression: Clear lungs.
--- NOTE | 2025-01-15 21:29 | HMCIMG ---
Exam Type: SHOULDER COMP 2+VWS LT Clinical Information: shoulder pain with tingling and numbness Comparison: None FINDINGS: The examination is unremarkable. Specifically, the glenohumeral and acromioclavicular joints are preserved. Visualized portions of the humerus, the scapula, and the clavicle as well as the upper ribcage are unremarkable. No pulmonary pathology is noted in the visualized portions of the upper lobe. The soft tissues are preserved. There are no other gross abnormalities. IMPRESSION: NORMAL EXAMINATION.
[2025-01-15 21:33] LABS: APPEARANCE,URINE CLOUDY (CLEAR); BILIRUBIN,URINE NEGATIVE (NEGATIVE); COLOR,URINE LIGHT-YELLOW (YELLOW); GLUCOSE, URINE (UA) NEGATIVE (NEGATIVE); KETONES,URINE NEGATIVE (NEGATIVE); LEUKOCYTE ESTERASE ,URINE 250 Leu/uL (NEGATIVE); NITRATE,URINE NEGATIVE (NEGATIVE); OCCULT BLOOD,URINE NEGATIVE (NEGATIVE); PH,URINE 5.5 (5.0-8.0); PROTEIN,URINE 10 mg/dL (NEGATIVE); UROBILINOGEN,URINE 0.2 mg/dL (0.2-1.0)
[2025-01-15 21:38] LABS: ADD UA MICROSCOPIC YES
[2025-01-15 21:42] LABS: BACTERIA,URINE MOD /HPF (None Seen); MUCUS,URINE RARE LPF (None Seen); SQUAMOUS EPITHELIAL CELL,UR MANY /HPF (0-2); WBC,URINE 51-100 /HPF (0-1)
[2025-01-15] MEDS: GABApentin 100 MG CAPSULE PO ONE (21:48)
[2025-01-15] MEDS: ketOROlac 15MG/ML VIAL (15MG/ML) IV ONE (21:49)
[2025-01-15] MEDS ORDERED: GABA-529 PO (23:07)
[2025-01-15 23:14] VITALS: BP 110/52; PULSE 87; RESP 18; TEMP 98.6; O2SAT 98
--- NOTE | 2025-01-16 06:46 | EKG ---
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
== END 2025-01-15 23:23 | disposition home or self-care (01) ==
LOC: EDH 20:04
DX: M25.512 Pain in left shoulder (principal); R20.0 Anesthesia of skin; M79.602 Pain in left arm; E11.9 Type 2 diabetes mellitus without complications; E78.00 Pure hypercholesterolemia, unspecified; I10 Essential (primary) hypertension; F41.9 Anxiety disorder, unspecified; Z79.899 Other long term (current) drug therapy; Z90.710 Acquired absence of both cervix and uterus; Z95.1 Presence of aortocoronary bypass graft
CPT/HCPCS: 36415; 71045; 73030; 80048; 81001; 82550; 83735; 83880; 84484; 85025; 87086; 87186; 93005; 96374; 99285; J1885

== ENCOUNTER 2025-02-27 11:47 | Observation (INO) | payer OTHER, MEDICAID ==
[~2025-02-27] VITALS: Ht 154.9 cm; Wt 59.2 kg
[~2025-02-27 11:47] MED LIST changes: +GABA-529 PO
--- NOTE | 2025-02-27 11:52 | ERN ---
ED Note History of Present Illness Stated Complaint: CHEST PAIN Time Seen by MD: 11:49 Dictation: PATIENT IS A 49-YEAR-OLD FEMALE COMING IN VIA EMS WITH COMPLAINTS OF CHEST PAIN PRESSURE THAT RADIATES TO HER THORACIC BACK FOR THE LAST TWO WEEKS. SHE STATES SHE HAS A HISTORY OF DIABETES HYPERTENSION CAD AND HAS A CABG X3. 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 SHE ALSO STATES SHE DID NOT GO SEE HER PRIMARY CARE DOCTOR. SHE HAS NOT TAKEN AN ASPIRIN A DAY NO NITRO HAS BEEN ADMINISTERED. NO NAUSEA VOMITING NO SOB Allergies: Coded Allergies: No Known Drug Allergies (Verified Allergy, 08/16/12) Home Meds Active Scripts Gabapentin (Gabapentin) 100 Mg Capsule, 1 CAP PO TID for 30 Days, #90 CAP 0 Refills Prov:ABDULLAHI PEDRO MD 01/15/25 Insulin Lispro (Humalog Kwikpen) 200 Unit/Ml (3 Ml) Insuln.pen, 6 UNIT SQ TIDP for blood sugar >250, #5 SYRINGE Prov:VANNESA MORALES MD 07/26/23 Diclofenac Sodium (Diclofenac Sodium) 50 Mg Tablet.dr, 50 MG PO TIDP PRN for SEVERE PAIN (7-10), #15 TAB 0 Refills Prov:ANA PATRICIO MD 06/10/22 Reported Medications Pantoprazole Sodium (Pantoprazole Sodium) 40 Mg Granpkt.dr, 40 MG PO AM, PACK 05/09/24 Pioglitazone HCl (Pioglitazone HCl) 45 Mg Tablet, 45 MG PO AD, TAB 05/09/24 Clopidogrel Bisulfate (Clopidogrel) 75 Mg Tablet, 75 MG PO AD, TAB 05/09/24 Atorvastatin Calcium (Atorvastatin Calcium) 40 Mg Tablet, 40 MG PO AD, TAB 05/09/24 Ondansetron HCl (Ondansetron HCl) 4 Mg Tablet, 4 MG PO AD, TAB 05/09/24 Duloxetine HCl (Duloxetine HCl) 30 Mg Capsule.dr, 30 MG PO AM, CAP 05/09/24 Losartan Potassium (Losartan Potassium) 25 Mg Tablet, 25 MG PO AM, TAB 05/09/24 Hydrocodone/Acetaminophen (Hydrocodon-Acetaminophn 10-325) 10 Mg-325 Mg Tablet, 1 EACH PO BID, TAB 05/09/24 Zolpidem Tartrate (Zolpidem Tartrate) 5 Mg Tablet, 10 MG PO DAILYDINNER, TAB 09/22/21 Cyclobenzaprine HCl (Cyclobenzaprine HCl) 10 Mg Tablet, 10 MG PO BID, TAB 09/22/21 Past Medical History Past Medical History: Anxiety, Depression, Diabetes-Type II, High Cholesterol, Hypertension Additional Past Medical Hx: OSTEOMYELOTIS Surgical History: Hysterectomy, CABG, Surgical History Other: RIGHT LEG Family History: CAD Social History: Negative, Lives with family History: Not Applicable RN Note Reviewed/Agreed w/PFSH: Yes Review of System Dictation CONSTITUTIONAL: NEGATIVE EXCEPT FOR HPI HEAD/FACE: NEGATIVE EXCEPT FOR HPI EENT: NEGATIVE EXCEPT FOR HPI RESPIRATORY: NEGATIVE EXCEPT FOR HPI CHEST PAIN PRESSURE TWO WEEKS GASTROINTESTINAL/ABDOMINAL: NEGATIVE EXCEPT FOR HPI GENITOURINARY: NEGATIVE EXCEPT FOR HPI MUSCULOSKELETAL: NEGATIVE EXCEPT FOR HPI INTEGUMENTARY: NEGATIVE EXCEPT FOR HPI NEUROLOGICAL/PSYCH: NEGATIVE EXCEPT FOR HPI HEMATOLOGIC/LYMPHATIC: NEGATIVE EXCEPT FOR HPI ALL SYSTEMS NEGATIVE, EXCEPT NOTED ABOVE. 13 POINT REVIEW OF SYSTEMS ASSESSED AND ALL NEGATIVE EXCEPT FOR ABOVE. Initial Vital Sign VS Vital Signs Date Time Temp Pulse Resp B/P (MAP) Pulse Ox O2 Delivery O2 Flow Rate FiO2 02/27/25 12:23 98.6 89 22 129/41 Room Air 0 02/27/25 12:34 100 21 Physical Exam Dictation VITAL SIGNS REVIEWED GENERAL APPEARANCE: ALERT, ORIENTED X 3, NO ACUTE DISTRESS, WELL DEVELOPED, NOURISHED. HEAD AND FACE: NON-TRAUMATIC. EYES: PERRL, PINK CONJUNCTIVAS, EYELID NO TRAUMA, ANTERIOR CHAMBER WITH ARCUS SENILIS. EARS: PINNAS INTACT AND NO SIGNS OF TRAUMA OR ERYTHEMA EAR CANALS CLEAR AND NO DISCHARGE TM NO ERYTHEMA NOSE: NO DISCHARGE, NO BLEEDING. OROPHARYNX: MOUTH NORMAL, TONGUE PINK, PHARYNX CLEAR,NO ERYTHEMA, TONSILS NO EXUDATES, NO ABSCESSES NOTED, MUCOUS MEMBRANE MOIST NECK: SUPPLE, NON-TENDER, NO THYROMEGALY, NO MASSES, NO JVD, NO BRUITS BREAST:DEFERRED CHEST:NO TENDERNESS, NO CREPITUS, NO PARADOXICAL MOVEMENT, NO RETRACTIONS LUNGS:CLEAR, WELL-VENTILATED, SYMMETRIC, NO RALES, NO WHEEZING, NO RHONCHI, NO STRIDOR, GOOD BREATH SOUNDS BILATERALLY HEART: REGULAR RATE, REGULAR RHYTHM, NO MURMUR, NO GALLOPS VASCULAR: NO PERIPHERAL EDEMA, ABDOMEN: SOFT, POSITIVE BOWEL SOUNDS, NONDISTENDED, NO GUARDING, NONTENDER, NO REBOUND, NO MASSES NO HEPATOMEGALY, NO SPLENOMEGALY, NO HANNA'S SIGN, NO HERNIAS. RECTAL: DEFERRED GENITAL: DEFERRED NEUROLOGICAL: NORMAL SPEECH, MOTOR FUNCTION INTACT, SENSORY FUNCTION INTACT MUSCULOSKELETAL: NECK NONTENDER, FULL RANGE OF MOTION, BACK NONTENDER, FULL RANGE OF MOTION, EXTREMITIES: NONTENDER, FULL RANGE OF MOTION SKIN: COLOR PINK, DRY, NO TURGOR, NO RASH, NO LACERATIONS, NO ABRASIONS, NO CONTUSIONS. LYMPHATIC: DEFERRED Results (Laboratory/Radiology) Laboratory/Radiology Laboratory Tests Test 02/27/25 12:09 White Blood Count 12.5 K/uL (4.8-10.8) H Red Blood Count 4.22 MIL/uL (4.00-5.50) Hemoglobin 11.3 g/dL (12.0-16.0) L Hematocrit 37.6 % (36-48) Mean Corpuscular Volume 89.1 fL (79-99) Mean Corpuscular Hemoglobin 26.8 pg (27.0-33.0) L Mean Corpuscular Hemoglobin Concent 30.1 g/dL (32.0-36.0) L Red Cell Distribution Width 14.5 % (11.0-15.5) Platelet Count 138 K/uL (130-400) Mean Platelet Volume 10.6 fL (7.5-10.5) H Immature Granulocyte % (Auto) 0.6 % (0-1) Neutrophils (%) (Auto) 84.7 % (40.0-77.0) H Lymphocytes (%) (Auto) 8.9 % (21.0-51.0) L Monocytes (%) (Auto) 5.4 % (3.0-13.0) Eosinophils (%) (Auto) 0.2 % (0.0-8.0) Basophils (%) (Auto) 0.2 % (0.0-5.0) Neutrophils # (Auto) 10.6 K/uL (1.8-7.7) H Lymphocytes # (Auto) 1.1 K/uL (1.0-4.8) Monocytes # (Auto) 0.7 K/uL (0.1-1.0) Eosinophils # (Auto) 0.02 K/uL (0.00-0.70) Basophils # (Auto) 0.03 K/uL (0.00-0.20) Absolute Immature Granulocyte (auto 0.07 K/uL (0-1) Nucleated Red Blood Cells 0.0 % (0.0-0.19) White Cell Morphology Comment See comments Red Blood Cell Morphology ANISO 1+ Sodium Level 140 mmol/L (136-145) Potassium Level 4.8 mmol/L (3.5-5.1) Chloride Level 102 mmol/L (101-111) Carbon Dioxide Level 29 mmol/L (21-32) Blood Urea Nitrogen 18 mg/dL (7-18) Creatinine 1.3 mg/dL (0.5-1.0) H Glomerular Filtration Rate Calc 50 mL/min (>90) Random Glucose 165 mg/dL (70-105) H Total Calcium 9.5 mg/dL (8.5-10.1) Magnesium Level 1.80 mg/dL (1.80-2.40) Troponin I High Sensitivity 53 ng/L (4-50) *H B-Type Natriuretic Peptide 119 pg/mL (0-100) H Labs Reviewed?: Yes EKG Comment: 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 ED Course ED Course Orders Procedure Category Date Status Time Cbc With Differential LAB 02/27/25 Complete 11:49 B-Type Natriuretic LAB 02/27/25 Complete Peptide 11:49 Chest 1vw RAD 02/27/25 Resulted 11:49 12 Lead Ekg Tracing- EKG 02/27/25 Complete Technical 11:49 Nitroglycerin 0.4mg PHA 02/27/25 In Process Sl Tab (Nitrostat) 12:00 Magnesium LAB 02/27/25 Complete 11:49 Troponin I High LAB 02/27/25 Complete Sensitivity 11:49 Aspirin 325mg Tab PHA 02/27/25 Complete (Aspirin 325mg Tab) 12:00 Basic Metabolic Panel LAB 02/27/25 Complete 11:49 Oxygen By Nc/Pulse Ox CPOE 02/27/25 Transmitted 11:52 Current Medications Medications (Trade) Dose Ordered Sig/Ralph Route PRN Reason Start Time Stop Time Status Last Admin Dose Admin Aspirin (Aspirin 325mg Tab) 325 mg ONCE ONCE PO 02/27/25 12:00 02/27/25 12:01 DC 02/27/25 13:32 Nitroglycerin (Nitrostat) 0.4 mg Q5M PRN SL CHEST PAIN 02/27/25 12:00 Vital Signs Date Time Temp Pulse Resp B/P (MAP) Pulse Ox O2 Delivery O2 Flow Rate FiO2 02/27/25 12:34 98.2 88 14 129/41 100 Room Air* 0 21 02/27/25 12:23 98.6 89 22 129/41 Room Air 0 1400/SPOKE WITH DR. FULTON REVIEWED EKG LABS TROPONIN. HE AGREED TO ADMIT PATIENT TO THE HOSPITAL. HEART Score Response (Comments) Value EKG: Repolarization changes 1 Age: 45-65yrs (+1) 1 Risk Factors: 3+ risk factors (+2) 2 Initial Troponin: 1-3x Normal Limit (+1) 1 Total 5 Medical Decision Making MDM MDM: DIFFERENTIAL DIAGNOSIS: ACS/AMI/ELECTROLYTE IMBALANCE/DEHYDRATION PNEUMONIA/BRONCHITIS/ RATIONALE: TESTS CONSIDERED AND ORDERED SECONDARY TO SHARED DECISION MAKING INCLUDE: LABS, ECG AND RADIOLOGY PREVIOUS OUTSIDE RECORDS REVIEWED: OLD ER VISITS. RISK OF COMPLICATION AND/OR MORBIDITY OR MORTALITY OF PATIENT MANAGEMENT: NONE MEDICATIONS-PER MEDICATION RECONCILIATION NEED FOR HOSPITALIZATION: PATIENT DOES MEET CRITERIA FOR HOSPITALIZATION. PATIENT WILL NEED CARDIAC FOLLOW UP SERIAL EKG AND CARDIAC ENZYMES AND ADD RESSING [place] NEED FOR EMERGENCY MAJOR/MINOR SURGERY: NO THERE ARE NO SOCIAL CONCERNS WITH THIS PATIENT. PRESCRIPTION DRUG MANAGEMENT PRESCRIPTIONS WILL INCLUDE SYMPTOMATIC CARE PATIENT'S PRIOR EXTERNAL MEDICAL RECORDS FROM OTHER ER VISITS WERE REVIEWED BY ME INDICATED. PRIOR TESTING AND RESULTS FROM PREVIOUS VISITS WERE REVIEWED. PRIOR TESTS WERE TAKEN INTO ACCOUNT WITH MEDICAL DECISION MAKING AND RESOURCE UTILIZATION, INDEPENDENT HISTORIAN/HISTORIANS WERE USED TO OBTAIN COMPLETE MEDICAL HISTORY. I INDEPENDENTLY INTERPRETED THE TEST THAT WERE PERFORMED, RESULTS WERE REVIEWED BY ME AND CONSIDERED FINDINGS ON RADIOLOGY IF ORDERED. MEDICAL MANAGEMENT AND EXAMINATION INTERPRETATION DISCUSSIONS WERE HAD BY ME WITH OTHER QUALIFIED HEALTHCARE PROFESSIONALS INDICATED FOR THE PATIENT'S CARE. DX & DISP Disposition: Inpatient Decision to Admit Time: 14:02 Departure Impression: Primary Impression: Acute coronary syndrome with high troponin Additional Impressions: Anemia of chronic renal failure, Uncontrolled diabetes mellitus, Acute kidney injury Condition: Stable Referrals: HONORIO LIEBERMAN MD (PCP) Time of Disposition: 14:03 I have reviewed the case, and I agree with, Diagnosis and Plan CRISTINA TIMMONS NP Feb 27, 2025 11:52
[2025-02-27] MEDS ORDERED: NITROGLYCERIN 0.4 MG SL TAB SL PRN (12:00)
--- NOTE | 2025-02-27 12:10 | EKG ---
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
[2025-02-27 12:18] LABS: BASOPHILS # (AUTO) 0.03 K/uL (0.00-0.20); BASOPHILS % (AUTO) 0.2 % (0.0-5.0); EOSINOPHILS # (AUTO) 0.02 K/uL (0.00-0.70); EOSINOPHILS % (AUTO) 0.2 % (0.0-8.0); HEMATOCRIT 37.6 % (36-48); IMMATURE GRANULOCYTE ABSOLUTE 0.07 K/uL (0-1); LYMPHOCYTES # (AUTO) 1.1 K/uL (1.0-4.8); LYMPHOCYTES % (AUTO) 8.9 % (21.0-51.0); MEAN CORPUSCULAR HEMOGLOBIN 26.8 pg (27.0-33.0); MEAN CORPUSCULAR HGB CONC 30.1 g/dL (32.0-36.0); MEAN CORPUSCULAR VOLUME 89.1 fL (79-99); MONOCYTES # (AUTO) 0.7 K/uL (0.1-1.0); MONOCYTES % (AUTO) 5.4 % (3.0-13.0); NEUTROPHILS # (AUTO) 10.6 K/uL (1.8-7.7); NEUTROPHILS % (AUTO) 84.7 % (40.0-77.0); PLATELET COUNT (AUTO) 138 K/uL (130-400); RED BLOOD CELL COUNT(AUTO) 4.22 MIL/uL (4.00-5.50); RED CELL DISTRIBUTION WIDTH 14.5 % (11.0-15.5); WHITE BLOOD COUNT (AUTO) 12.5 K/uL (4.8-10.8)
[2025-02-27 12:23] LABS: CREATININE 1.3 mg/dL (0.5-1.0); MAGNESIUM 1.8 mg/dL (1.80-2.40); POTASSIUM 4.8 mmol/L (3.5-5.1)
[2025-02-27 12:44] LABS: B-TYPE NATRIURETIC PEPTIDE 119 pg/mL (0-100)
--- NOTE | 2025-02-27 13:28 | HMCIMG ---
CHEST 1VW REASON: CHEST PAIN COMPARISON: 01/15/2025 FINDINGS: Single view of the chest was obtained. Lungs are clear. Heart size is normal. There is no pulmonary vascular congestion. Mediastinum and bony thorax appear unremarkable. Has been a previous median sternotomy. IMPRESSION: 1. No acute finding, no change.
[2025-02-27] MEDS: ASPIRIN 325MG TAB PO ONE (13:32)
--- NOTE | 2025-02-27 13:36 | NUR ---
pt reports no cp at this time
[2025-02-27] MEDS ORDERED: acetaMINOPHEN 325 MG TAB PO PRN (14:30)
[2025-02-27] MEDS: morPHINE 2 MG SYG IVP PRN (16:38)
--- NOTE | 2025-02-27 17:09 | CONS ---
Cardiac Consult Note CONSULT NOTE DATE OF SERVICE: Feb 27, 2025 at 11:47 REFERRING PROVIDER: LUKAS SYVLESTER MD REASON FOR CONSULT: Chest pain history of CABG HPI: Patient is here in the emergency room secondary to recurrent issues of substernal chest discomfort at the sternotomy site. Patient had coronary artery bypass grafting in October of 2024 and has had recurrent issues related to reproducible chest wall pain sternotomy pain and left shoulder and upper extremity pain. Patient was concerned regarding complaints and decided come to the emergency room for further evaluation and care. She had actually seen Dr. Johnson in the office on February 05 and at that time was complaining of some lower extremity swelling and lower extremity venous Dopplers were performed are ordered and she was placed back on furosemide. Patient's other medications according to that note involve Lantus, pantoprazole, gabapentin 3 times daily, Ozempic, aspirin 81 mg daily, clopidogrel 75 mg daily, pioglitazone 45 mg daily, metoprolol succinate at 25 mg daily in addition to furosemide at 20 mg daily and lisinopril 2.5 mg nightly. Patient has no known drug allergies. ROS: No fever, headache, chest pain, abdominal pain, nausea, vomiting, or diarrhea. PMHX: Diabetes Hypertension Hypertensive heart disease GERD Dyslipidemia Non ST segment elevation myocardial infarction October 2024 status post coronary angiography revealing multivessel disease status post CABG x3 with BUSTILLO-LAD, SVG-PDA, SVG-OMB PSHX: [CABG x3 Knee surgery FH: Noncontributory SOCIAL: Nonsmoker nondrinker PHYSICAL EXAMINATION: GENERAL: No acute distress. HEENT: Normocephalic, atraumatic. CARDIAC: Positive S1 and S2. No murmurs. LUNGS: Clear to auscultation bilaterally. ABDOMEN: Bowel sounds present, soft, nontender. EXTREMITIES: No edema bilaterally. NEUROLOGIC: Cranial nerves 2-12 grossly intact. PSYCHIATRIC: Calm. ASSESSMENT: Atypical chest pain Reproducible pain at sternotomy site Question malunion of sternum History of coronary artery disease with non ST segment elevation myocardial infarction October 2024 multivessel disease status post CABG October 2024 Diabetes mellitus Dyslipidemia GERD PLAN: I would like a CT scan without contrast to be performed here in the emergency room setting to assess union of sternum. Would continue to cycle cardiac enzymes. Patient's symptoms seemed to be reproducible and musculoskeletal in nature and I do not foresee the need for further invasive studies to be done if high sensitivity troponins remain in a flat pattern. I do not have any echocardiogram that were done at [facility] in the setting of her myocardial infarction and reviewing studies from that hospital a left ventriculogram was also not performed at least not [address] Johnson does make mentioned on 1 of his notes from November 14, 2024 at [facility] to an ejection fraction that was at 55%. We will not order any imaging studies currently regarding ultrasounds we will leave this at the discretion of her primary setter molding and coremaking machines tomorrow. Would continue with high sensitivity troponin serial enzyme rule out. Vital Signs 02/27/25 02/27/25 02/27/25 12:23 12:34 16:34 Temp 98.6 98.2 98.2 Pulse 89 88 92 Resp 22 14 14 B/P (MAP) 129/41 129/41 125/41 Pulse Ox 100 100 O2 Delivery Room Air Room Air* Room Air* O2 Flow Rate 0 0 0 FiO2 21 21 Laboratory Tests Test 02/27/25 12:09 02/27/25 14:35 White Blood Count 12.5 K/uL (4.8-10.8) Red Blood Count 4.22 MIL/uL (4.00-5.50) Hemoglobin 11.3 g/dL (12.0-16.0) Hematocrit 37.6 % (36-48) Mean Corpuscular Volume 89.1 fL (79-99) Mean Corpuscular Hemoglobin 26.8 pg (27.0-33.0) Mean Corpuscular Hemoglobin Concent 30.1 g/dL (32.0-36.0) Red Cell Distribution Width 14.5 % (11.0-15.5) Platelet Count 138 K/uL (130-400) Mean Platelet Volume 10.6 fL (7.5-10.5) Immature Granulocyte % (Auto) 0.6 % (0-1) Neutrophils (%) (Auto) 84.7 % (40.0-77.0) Lymphocytes (%) (Auto) 8.9 % (21.0-51.0) Monocytes (%) (Auto) 5.4 % (3.0-13.0) Eosinophils (%) (Auto) 0.2 % (0.0-8.0) Basophils (%) (Auto) 0.2 % (0.0-5.0) Neutrophils # (Auto) 10.6 K/uL (1.8-7.7) Lymphocytes # (Auto) 1.1 K/uL (1.0-4.8) Monocytes # (Auto) 0.7 K/uL (0.1-1.0) Eosinophils # (Auto) 0.02 K/uL (0.00-0.70) Basophils # (Auto) 0.03 K/uL (0.00-0.20) Absolute Immature Granulocyte (auto 0.07 K/uL (0-1) Nucleated Red Blood Cells 0.0 % (0.0-0.19) White Cell Morphology Comment See comments Red Blood Cell Morphology ANISO 1+ Sodium Level 140 mmol/L (136-145) Potassium Level 4.8 mmol/L (3.5-5.1) Chloride Level 102 mmol/L (101-111) Carbon Dioxide Level 29 mmol/L (21-32) Blood Urea Nitrogen 18 mg/dL (7-18) Creatinine 1.3 mg/dL (0.5-1.0) Glomerular Filtration Rate Calc 50 mL/min (>90) Random Glucose 165 mg/dL (70-105) Total Calcium 9.5 mg/dL (8.5-10.1) Magnesium Level 1.80 mg/dL (1.80-2.40) Troponin I High Sensitivity 53 ng/L (4-50) 97 ng/L (4-50) B-Type Natriuretic Peptide 119 pg/mL (0-100) Current Medications Medications Dose Ordered Sig/Ralph Route PRN Reason Start Time Stop Time Status Last Admin Aspirin 325 mg ONCE ONCE PO 02/27/25 12:00 02/27/25 12:01 DC 02/27/25 13:32 Aspirin 81 mg DAILY PO 02/28/25 09:00 03/30/25 08:59 Enoxaparin Sodium 40 mg DAILY ONCE SQ 02/28/25 09:00 02/28/25 09:01 Active Scripts Gabapentin (Gabapentin) 100 Mg Capsule, 1 CAP PO TID for 30 Days, #90 CAP 0 Refills Prov:ABDULLAHI PEDRO MD 01/15/25 Insulin Lispro (Humalog Kwikpen) 200 Unit/Ml (3 Ml) Insuln.pen, 6 UNIT SQ TIDP for blood sugar >250, #5 SYRINGE Prov:VANNESA MORALES MD 07/26/23 Diclofenac Sodium (Diclofenac Sodium) 50 Mg Tablet.dr, 50 MG PO TIDP PRN for SEVERE PAIN (7-10), #15 TAB 0 Refills Prov:ANA PATRICIO MD 06/10/22 Reported Medications Pantoprazole Sodium (Pantoprazole Sodium) 40 Mg Granpkt.dr, 40 MG PO AM, PACK 05/09/24 Pioglitazone HCl (Pioglitazone HCl) 45 Mg Tablet, 45 MG PO AD, TAB 05/09/24 Clopidogrel Bisulfate (Clopidogrel) 75 Mg Tablet, 75 MG PO AD, TAB 05/09/24 Atorvastatin Calcium (Atorvastatin Calcium) 40 Mg Tablet, 40 MG PO AD, TAB 05/09/24 Ondansetron HCl (Ondansetron HCl) 4 Mg Tablet, 4 MG PO AD, TAB 05/09/24 Duloxetine HCl (Duloxetine HCl) 30 Mg Capsule.dr, 30 MG PO AM, CAP 05/09/24 Losartan Potassium (Losartan Potassium) 25 Mg Tablet, 25 MG PO AM, TAB 05/09/24 Hydrocodone/Acetaminophen (Hydrocodon-Acetaminophn 10-325) 10 Mg-325 Mg Tablet, 1 EACH PO BID, TAB 05/09/24 Zolpidem Tartrate (Zolpidem Tartrate) 5 Mg Tablet, 10 MG PO DAILYDINNER, TAB 09/22/21 Cyclobenzaprine HCl (Cyclobenzaprine HCl) 10 Mg Tablet, 10 MG PO BID, TAB 09/22/21 LUKAS SYLVESTER MD Feb 27, 2025 17:09
[2025-02-27 17:55] VITALS: BP 118/44; PULSE 93; RESP 18; TEMP 98.8; O2SAT 99
[2025-02-27] MEDS ORDERED: FURO20TA4 PO (18:48)
[2025-02-27] MEDS ORDERED: ESCI-8 PO (18:48)
[2025-02-27] MEDS ORDERED: METO-408 PO (18:48)
[2025-02-27] MEDS ORDERED: ASPI-1197 PO (18:48)
[2025-02-27] MEDS: ondanSETRON 4MG INJ IVP PRN (19:13)
[2025-02-27 20:00] VITALS: BP 108/58; PULSE 88; RESP 17; TEMP 98.4
[2025-02-27] MEDS: GABApentin 100 MG CAPSULE PO SCH (20:30)
[2025-02-27] MEDS: atorVAStatin 40 MG TABLET PO SCH (20:30)
[2025-02-27] MEDS: ZOLPidem TARTrate 5 MG TAB PO SCH (20:30)
[2025-02-27] MEDS: MAGNESIUM 2GM PREMIX 50ML 50 ML IV PRN (20:30)
[2025-02-27 23:54] VITALS: BP 131/55; PULSE 93; RESP 17; TEMP 98.4
[2025-02-27 23:55] VITALS: O2SAT 97
[2025-02-28] VITALS (9 sets, daily range): BP systolic 90–124; BP diastolic 42–63; PULSE 67–96; RESP 16–18; TEMP 97.3–98.8; O2SAT 98–100
[2025-02-28 05:00] LABS: CREATININE 1.4 mg/dL (0.5-1.0); MAGNESIUM 2.6 mg/dL (1.80-2.40); POTASSIUM 3.6 mmol/L (3.5-5.1)
[2025-02-28 05:02] LABS: HEMATOCRIT 32.2 % (36-48); MEAN CORPUSCULAR HEMOGLOBIN 26.9 pg (27.0-33.0); MEAN CORPUSCULAR HGB CONC 31.7 g/dL (32.0-36.0); RED BLOOD CELL COUNT(AUTO) 3.79 MIL/uL (4.00-5.50); RED CELL DISTRIBUTION WIDTH 14.5 % (11.0-15.5)
--- NOTE | 2025-02-28 07:17 | PN ---
[facility] Cardiology Progress Note CARDIOLOGY PROGRESS NOTE FEBRUARY 28, 2025 Problems: 1. Atypical chest pain reproducible at the sternotomy site with normal troponins and no acute ST changes 2. Non ST-elevation DC October 2024 3. Multivessel CAD status post aortocoronary bypass graft surgery October 2024 4. Diabetes mellitus type 2 5. Dyslipidemia Blood pressure 124/59 heart rate is in the 90s the patient is afebrile. Potassium 3.6 BUN24 creatinine 1.4 From 1.3 on admission white count 40142 hemoglobin 10.2 Platelet count 2 and 7000. Patient continues on hydrocodone p.r.n. aspirin atorvastatin Lovenox furosemide losartan metoprolol succinate pantoprazole pioglitazone. CT scan of the chest has been completed report is pending. MIKE JUDD MD Feb 28, 2025 07:17
--- NOTE | 2025-02-28 07:42 | NUR ---
DCP; HOME Pt lives with her BF Oliverio Gibson [phone] in her mobile home with ramp. Son Anatoly Valdes [phone] is er contact. Pt on SSI, has Medicare and Medicaid. Provider 6hrs daily thru [facility]. They assist pt with ADLS, home management and meal prep. Pt has a walker with seat, shower chair and bsc. No HH or HD at this time. [facility] needs and PCP is Alli Telles. Pt denies need for SNF, will return home at md. Addendum: 02/28/25 at 0749 by SILVIA AGGARWAL Amended: Links added.
--- NOTE | 2025-02-28 08:40 | HP ---
DATE OF SERVICE: 02/27/2025 HISTORY AND PHYSICAL PRESENTING COMPLAINT: Chest pain. HISTORY OF PRESENT ILLNESS: A 49-year-old female with history of coronary artery disease status post CABG, diabetes mellitus, depression and dyslipidemia, presented to the hospital with above complaint. The patient complained of chest pain, which is pressure-like, localized to the left side and radiating to the center. No palpitation orthopnea. Pain is about 7/10 intensity. Denies shortness of breath, orthopnea, or pleuritic pain. Denies dysuria or urinary frequency. Initial troponin was 53 and repeat troponin came back at 97. EKG was unremarkable. The patient has history of coronary artery disease, for which CABG was done in the past. The patient will [facility] up [facility]. PAST MEDICAL HISTORY: * Coronary artery disease. * Diabetes mellitus. * Depression. * Dyslipidemia. * Hypertension. * Right leg osteomyelitis. PAST SURGICAL HISTORY: * Right leg surgery. * CABG. * section. * Cardiac catheterization. ALLERGIES: No known drug allergies. HOME MEDICATIONS: To be reviewed. SOCIAL HISTORY: No alcohol, tobacco or illicit drug use. FAMILY HISTORY: Positive for diabetes mellitus. REVIEW OF SYSTEMS: Greater than 10 systems were reviewed and negative except as documented above. PHYSICAL EXAMINATION: GENERAL: Middle-aged female, awake, not in distress, afebrile to touch. VITAL SIGNS: Temperature 98.2, pulse 92, respiratory rate 14, BP 125/41. EYES: No icterus. Pupils equal and reactive. HENT: No oral thrush seen. Moist oral mucosa. NECK: Supple. No JVD or thyromegaly. LUNGS: Good air entry. No rales. No rhonchi. CARDIOVASCULAR: S1, S2 regular. No murmur heard. ABDOMEN: Full, soft, nontender. Bowel sound is present. CENTRAL NERVOUS SYSTEM: Awake, alert, oriented x 3. No focal deficits. SKIN: No rashes. No itchiness. LYMPHATIC: No peripheral lymphadenopathy. BACK: No deformity. No pressure ulcer. MUSCULOSKELETAL: No joint swelling, erythema or tenderness. LABORATORY DATA: Troponin 97. Sodium 140, potassium 4.8, BUN 18, creatinine 1.3. WBC 12.5, hemoglobin 11.2, platelets 130. RADIOLOGY: Chest x-ray is unremarkable. ASSESSMENT: A 49-year-old female presented with chest pain. CURRENT PROBLEMS: Include: * Angina pectoris. * Hypertension. * Diabetes mellitus. * Dyslipidemia. * Mildly elevated troponin. PLAN: * The patient will be admitted to medical floor/telemetry. * Troponin will be trended. * Start the patient on aspirin. * Start the patient on Lipitor. * The patient will be placed on Lovenox. * Tylenol as needed for pain. * Zofran as needed for nausea and vomiting. * Cardiology evaluation. * Home medication will be reconciled. TID: [id number] RECEIPT: [id number] MTDD
[2025-02-28] MEDS: ENOXAPARIN SODIUM 40 MG/0.4 ML SYRINGE SQ ONE (08:57)
[2025-02-28] MEDS: citaLOPram 20 MG TABLET PO SCH (08:58)
[2025-02-28] MEDS: metOPROLol sucCINATE 25 MG TAB.SR.24H PO SCH (08:58)
[2025-02-28] MEDS: PIOGLITAZONE 45MG TAB PO SCH (08:58)
[2025-02-28] MEDS: ASPIRIN 81MG CHEW TAB PO SCH (08:58)
[2025-02-28] MEDS: PANTOPrazole 40 MG TAB DR PO SCH (08:58)
[2025-02-28] MEDS: furoSEMIDE 20 MG TABLET PO SCH (08:58)
[2025-02-28] MEDS: LoSARTan 25 MG TABLET PO SCH (08:58)
--- NOTE | 2025-02-28 09:14 | HMCIMG ---
Exam Type: CT CHEST/ABD/PELV W/O CONTRAST Clinical Information: POST CARDIAC SURG PAIN AT SITE Comparison: None CT Dose Index (CTDI): 19.73 mGy Dose Length Product (DLP): 1260.8 total mGy PROTOCOL: Examination is done at 2.5 millimeter volumetric acquisition . Photography is done at 5 millimeter thick intervals for the thorax. Findings: CHEST The airway is intact. The trachea and major bronchi are unremarkable. The chest exam shows no pulmonary nodules or masses. No significant pulmonary parenchymal abnormalities are noted. No pulmonary infiltrates or mass lesions are seen. No pleural effusions are identified. The nonenhanced exam of the meir and mediastinum is unremarkable. No evidence of hilar enlargement is seen. The aorta shows no aneurysmal dilatation or significant atheromatous calcification. No significant brachiocephalic vascular abnormalities are seen. Status post CABG. There is no pericardial effusion. The rib cage appears unremarkable. The soft tissues of the chest wall are unremarkable. The dorsal spine shows no significant abnormalities. ABDOMEN/ PELVIS No evidence of nephro or ureterolithiasis is found. No hydronephrosis or ureteral dilatation is seen. The lung bases are clear. The stomach is unremarkable. It shows no wall thickening. No gross ulceration is seen. It is not overly distended. There are no surrounding inflammatory changes. No wall lesions are identified to suggest cancer. The spleen is unremarkable. It is not enlarged. The pancreas shows normal anatomy. It is not fatty replaced. It shows no lesions. The pancreatic duct is not dilated. The gallbladder is surgically absent. The adrenal glands are unremarkable. There is no enlargement. No lesions are noted. The liver is unremarkable. It shows no focal masses. The appendix is unremarkable. It shows no evidence of inflammation. No appendicolith is seen. The small bowel is unremarkable. There is no evidence of dilatation to suggest obstruction. No evidence of adynamic ileus is seen. There is no small bowel wall thickening to suggest enteritis. The colon is unremarkable. The urinary bladder is unremarkable. There is no wall thickening to suggest tumor or inflammation. There are no intraluminal calculi. There are no diverticula. There is no evidence of chronic bladder outlet obstruction. There is no evidence of urinary bladder distention to suggest urinary retention. The other pelvic structures are unremarkable. The bony and vascular structures are unremarkable for the patient's age. Impression: Status post CABG. No acute abdominopelvic pathology noted. This study was performed using dose reduction techniques to include automated exposure control and/or adjustment of the mA and/or kV according to patient size.
[2025-02-28] MEDS ORDERED: PoTASSium chloRIDE 10MEQ/100ML 100 ML IV PRN (10:00)
[2025-02-28] MEDS ORDERED: PoTASSium chl 10% ELIXIR 20MEQ 20 MEQ/15 ML UDCUP PO PRN (10:00)
[2025-02-28] MEDS: PoTASSium chloRIDE 10MEQ SR 10 MEQ/TAB TAB.SR.24H PO PRN (10:47)
[2025-02-28] MEDS ORDERED: GLUCAGON 1MG KIT 1 MG ML IM PRN (12:00)
[2025-02-28] MEDS ORDERED: DEXTROSE 50%-WATER 50 ML DISP.SYRIN IV PRN (12:00)
[2025-02-28] MEDS: INSULIN humuLIN R 100 UNIT/ML 3ML SQ SCH (12:07)
--- NOTE | 2025-02-28 15:07 | NUR ---
Nutritional Note: Recommend: - Electrolyte replacements per protocol -Monitor feeding tolerance, %, wt, and labs -Document PO intake and wt daily. -If No BM >3days consider bowel stimulant. -Schedule outpatient RD f/u for long-term nutrition care. - Notify RD if additional nutrition concerns arise. SEE RD Nutritional Assessment for additional assessment information. Addendum: 02/28/25 at [address] Amended: Links added.
[2025-02-28] MEDS: HYDROcodone/acetaMINOPHEN 10/325 MG TAB PO PRN (21:50)
--- NOTE | 2025-02-28 23:55 | PN ---
INFECTIOUS DISEASE PROGRESS NOTE Date of Service: Feb 28, 2025 SUBJECTIVE: This is a 49-year-old female patient who was seen and examined at bedside in room 329. Patient is awake, alert and oriented x3. Denying chest pain, patient however voiced pain to her upper back. A MRI of the thoracic spine was ordered, but patient refused due to she prefers to be an open MRI. We will continue pain management. No fever, temperature is 98.1. PHYSICAL EXAM EYES: Anicteric. Pupils equal and reactive. HENT: No oral thrush seen, moist Oral mucosa NECK: Supple, no JVD or thyromegaly. LUNGS: Good air entry. No rales, no rhonchi. CARDIOVASCULAR: S1, S2 regular. No murmur heard. ABDOMEN: Soft, non tender, bowel sounds present, no organomegaly CENTRAL NERVOUS SYSTEM: Awake, alert, oriented x 3. SKIN: No rashes, no swelling. LYMPHATICS: No peripheral lymphadenopathy MUSCULOSKELETAL: No joint swelling, erythema or tenderness. Upper back pain. EXTREMITIES: No cyanosis or clubbing BACK: No deformity, no pressure ulcer. GENITOURINARY: No dysuria or hematuria Vital Sign (Last 12 Hours) 02/28/25 02/28/25 02/28/25 02/28/25 11:59 16:00 16:14 19:58 Temp 98.1 97.3 98.1 Pulse 83 67 69 68 Resp 18 18 17 B/P (MAP) 109/63 90/42 109/57 111/60 Pulse Ox 99 98 98 O2 Delivery Room Air Room Air Room Air 02/28/25 02/28/25 23:08 23:48 Temp 97.9 Pulse 70 Resp 16 B/P (MAP) 103/51 Pulse Ox 98 95 O2 Delivery Room Air* Room Air O2 Flow Rate 0 FiO2 21 LABS: Laboratory: Test 02/28/25 19:37 02/28/25 04:15 02/27/25 14:35 02/27/25 12:09 Range/Units Whole Blood Glucose 199 H 70-110 MG/DL White Blood Count 14.0 H 4.8-10.8 K/uL Red Blood Count 3.79 L 4.00-5.50 MIL/uL Hemoglobin 10.2 L 12.0-16.0 g/dL Hematocrit 32.2 L 36-48 % Mean Corpuscular Volume 85.0 79-99 fL Mean Corpuscular Hemoglobin 26.9 L 27.0-33.0 pg Mean Corpuscular Hemoglobin Concent 31.7 L 32.0-36.0 g/dL Red Cell Distribution Width 14.5 11.0-15.5 % Platelet Count 107 L 130-400 K/uL Mean Platelet Volume 10.7 H 7.5-10.5 fL Nucleated Red Blood Cells 0.0 0.0-0.19 % Sodium Level 140 136-145 mmol/L Potassium Level 3.6 3.5-5.1 mmol/L Chloride Level 102 101-111 mmol/L Carbon Dioxide Level 30 21-32 mmol/L Blood Urea Nitrogen 24 H 7-18 mg/dL Creatinine 1.4 H 0.5-1.0 mg/dL Glomerular Filtration Rate Calc 46 >90 mL/min Random Glucose 190 H 70-105 mg/dL Total Calcium 8.7 8.5-10.1 mg/dL Magnesium Level 2.60 H 1.80-2.40 mg/dL Troponin I High Sensitivity 97 *H 4-50 ng/L Immature Granulocyte % (Auto) 0.6 0-1 % Neutrophils (%) (Auto) 84.7 H 40.0-77.0 % Lymphocytes (%) (Auto) 8.9 L 21.0-51.0 % Monocytes (%) (Auto) 5.4 3.0-13.0 % Eosinophils (%) (Auto) 0.2 0.0-8.0 % Basophils (%) (Auto) 0.2 0.0-5.0 % Neutrophils # (Auto) 10.6 H 1.8-7.7 K/uL Lymphocytes # (Auto) 1.1 1.0-4.8 K/uL Monocytes # (Auto) 0.7 0.1-1.0 K/uL Eosinophils # (Auto) 0.02 0.00-0.70 K/uL Basophils # (Auto) 0.03 0.00-0.20 K/uL Absolute Immature Granulocyte (auto 0.07 0-1 K/uL White Cell Morphology Comment See comments Red Blood Cell Morphology ANISO 1+ B-Type Natriuretic Peptide 119 H 0-100 pg/mL ASSESSMENT: Angina pectoris. Leukocytosis. Mildly elevated troponin. Diabetes mellitus. Coronary artery disease. Hypertension. Upper back pain. PLAN: Cardiology has been consulted and following. MRI of the thoracic spine was ordered, patient however refused because she prefers an open MRI. Continue pain management. Home medications has been reviewed and reconciled. Continue antidiabetics. This case was reviewed and discussed with my supervising physician and the above assessment and plan was formulated and agreed upon. ATTESTATION BY PHYSICIAN I have seen and examined the patient. I reviewed the documentation, medical decision making, and treatment plan as noted by the mid-level provider above. I agree with the findings and plan of care. MAREVL FULTON MD, [facility] Feb 28, 2025 23:55
[2025-03-01 03:58] VITALS: BP 112/52; PULSE 64; RESP 16; TEMP 98
[2025-03-01 04:57] LABS: HEMATOCRIT 28.2 % (36-48); MEAN CORPUSCULAR HEMOGLOBIN 27.2 pg (27.0-33.0); MEAN CORPUSCULAR HGB CONC 32.3 g/dL (32.0-36.0); MEAN CORPUSCULAR VOLUME 84.2 fL (79-99); PLATELET COUNT (AUTO) 69 K/uL (130-400); RED BLOOD CELL COUNT(AUTO) 3.35 MIL/uL (4.00-5.50); RED CELL DISTRIBUTION WIDTH 14.6 % (11.0-15.5); WHITE BLOOD COUNT (AUTO) 9.1 K/uL (4.8-10.8)
[2025-03-01 05:16] LABS: ALBUMIN 2.6 g/dL (3.5-5.0); BILIRUBIN,TOTAL 0.3 mg/dL (0.2-1.0); CREATININE 1.1 mg/dL (0.5-1.0); MAGNESIUM 2.3 mg/dL (1.80-2.40); POTASSIUM 3.7 mmol/L (3.5-5.1); TOTAL PROTEIN, SERUM 6.3 g/dL (6.0-8.3)
--- NOTE | 2025-03-01 07:31 | PN ---
[facility] Cardiology Progress Note Cardiology progress note dictated for Mike Judd MD Date of service 03/01/2025 Problems: 1. Atypical chest pain reproducible at the sternotomy site with normal troponins and no acute ST changes 2. Non ST-elevation [place] October 2024 3. Multivessel CAD status post aortocoronary bypass graft surgery October 2024 4. Diabetes mellitus type 2 5. Dyslipidemia Assessment/plan: At this point we have a 49-year-old female status post NSTEMI with subsequent aortocoronary bypass graft surgery October 2024 presented for evaluation of atypical chest pain reproducible at the sternotomy site. Troponins have been cycled and all negative. Twelve lead EKG did not demonstrate acute findings. This morning she is resting comfortably her blood pressure is 112/52 her heart rate is 64 beats per minute and regular lungs are clear to auscultation no pedal edema noted. She had a CT of the chest abdomen and pelvis yesterday that was unremarkable. Cardiac-rinaldi the patient is stable can be discharged home and follow-up at [facility] in 1-2 weeks. ATTESTATION BY PHYSICIAN I have seen and examined the patient. I reviewed the documentation, medical decision making, and treatment plan as noted by the mid-level provider above. I agree with the findings and plan of care. MIKE JUDD MD, [facility] Mar 01, 2025 07:31 MIKE JUDD MD Mar 01, 2025 09:28
[2025-03-01 08:00] VITALS: BP 102/54; PULSE 64; RESP 17; TEMP 97.8
[2025-03-01 10:58] VITALS: O2SAT 98
[2025-03-01 12:00] VITALS: BP 120/57; PULSE 78; RESP 19; TEMP 98.1
--- NOTE | 2025-03-01 15:30 | NUR ---
DC INSTRUCTIONS GIVEN; IV REMOVED
--- NOTE | 2025-03-01 19:32 | DS ---
Discharge Summary Hospital Course This is a 49-year-old female patient with past medical history of coronary artery disease, diabetes mellitus, depression and dyslipidemia who presented to the hospital with chief complaint of chest pain which she described as pressure- like, localized to the left side and radiating to the center. Pain is about 7/10 intensity. No palpitation orthopnea. Denies shortness of breath, orthopnea, or pleuritic pain. Denies dysuria or urinary frequency. Initial troponin was 53 and repeat troponin came back at 97. EKG was unremarkable. The patient has history of coronary artery disease, for which CABG was done in the past. During hospitalization patient complaint of upper back pain for which an MRI of the thoracic spine was ordered but patient refused due to she prefers an open MRI. Patient denying experiencing anymore chest pain. Cardiology has evaluated and cleared patient for discharge. Patient will be discharged to home today and is to follow up with expanded function dental assistant in 1-2 weeks. FINAL DISCHARGE DIAGNOSIS: Angina pectoris. Leukocytosis. Mildly elevated troponin. Diabetes mellitus. Coronary artery disease. Hypertension. Upper back pain. PLAN: Discharge patient to home today. Continue same home medications. Follow up with PCP in 3-5 days. Follow up with expanded function dental assistant in 1-2 weeks. This case was reviewed and discussed with my supervising physician and the above assessment and plan was formulated and agreed upon. ATTESTATION BY PHYSICIAN I have seen and examined the patient. I reviewed the documentation, medical decision making, and treatment plan as noted by the mid-level provider above. I agree with the findings and plan of care. MARVEL FULTON MD, [facility] Mar 01, 2025 19:32
== END 2025-03-01 16:40 | disposition home or self-care (01) ==
LOC: EDH 11:47 → EDHIP 14:10 → UNDOADMIN 14:10 → 3AH 14:22 → EDHIP 17:55 → 3AH 03-01 01:35 → UNDOADMOB 03-01 01:35 → INTOOBSV 03-01 01:35 → UNDODISOB 03-01 16:40
PROVIDERS: ADMIT Internal Medicine Infectious Disease; ATTEND Internal Medicine Infectious Disease
DX: I25.119 Atherosclerotic heart disease of native coronary artery with unspecified angina pectoris (principal); D72.829 Elevated white blood cell count, unspecified; I12.9 Hypertensive chronic kidney disease with stage 1 through stage 4 chronic kidney disease, or unspecified chronic kidney disease; E11.22 Type 2 diabetes mellitus with diabetic chronic kidney disease; N18.9 Chronic kidney disease, unspecified; E78.5 Hyperlipidemia, unspecified; R79.89 Other specified abnormal findings of blood chemistry; N17.9 Acute kidney failure, unspecified; M54.6 Pain in thoracic spine; F41.9 Anxiety disorder, unspecified; F32.A Depression, unspecified; E11.65 Type 2 diabetes mellitus with hyperglycemia; D63.1 Anemia in chronic kidney disease; K21.9 Gastro-esophageal reflux disease without esophagitis; I24.9 Acute ischemic heart disease, unspecified; I25.2 Old myocardial infarction; M86.9 Osteomyelitis, unspecified; Z90.710 Acquired absence of both cervix and uterus; Z79.84 Long term (current) use of oral hypoglycemic drugs; Z79.82 Long term (current) use of aspirin; Z79.4 Long term (current) use of insulin; Z79.899 Other long term (current) drug therapy; Z95.1 Presence of aortocoronary bypass graft
CPT/HCPCS: 96376 ×2; 96365; 96375; 99285; 83735 ×3; 84484 ×2; 80048 ×2; 83880; 85025; 36415 ×3; 71045; 71250; 74176; 93005; 96372; 85027 ×2; 82948 ×6; 80053; J3475; J2270 ×4; J2405; J1815 ×3; J1650; G0378 ×4; 96374